=== PATIENT | female | born 1945 | race Caucasian/White ===

== ENCOUNTER 2020-09-20 16:22 | Inpatient (IN) | payer MEDICARE, SELFPAY ==
--- NOTE | ~2020-09-20 | XR_ITS ---
EXAMINATION: XR chest 1V portable 09/20/2020 19:50 INDICATION: Preop. Left hip fracture. PROCEDURE: AP portable chest COMPARISON: No prior studies for comparison. FINDINGS: The lungs are clear. There are calcified granulomas of the lungs. The cardiomediastinal osman houette is within normal limits. There are no pleural effusions. There is no pneumothorax suspected . IMPRESSION: 1: NO ACUTE CARDIOPULMONARY DISEASE. Reviewed, dictated and finalized at location A. ARCHITECT
--- NOTE | ~2020-09-20 | XR_ITS ---
XR surgery orthopedic 09/21/2020 18:39 Indication: Left hip pinning for femoral neck fracture Procedure: 2 fluoroscopic images left hip. 183 seconds of fluoroscopy. Comparison: 09/20/2020 Findings: There is anatomic alignment of the left femoral neck status post internal fixation with 3 l ag screws. Surrounding osseous structures and soft tissues are unremarkable. Impression: 1: Anatomic alignment of the left femoral neck fracture status post reduction with 3 lag screws. Reviewed, dictated and finalized at location A. MAT CAR ATTENDANT Impression: 1: Anatomic alignment of the left femoral neck fracture status post reduction w ith 3 lag screws.
--- NOTE | ~2020-09-20 | XR_ITS ---
XR hip LT 2V w AP pelvis 09/20/2020 18:52 Indication: Left hip pain after fall Procedure: 3 views left hip including AP pelvis Comparison: No prior studies for comparison. Findings: There is a nondisplaced impaction fracture of the left femoral neck. No significant angulat ion. Pelvic rings are intact. No other fracture. Impression: 1: Nondisplaced impaction fracture left femoral neck. Reviewed, dictated and finalized at location A. DUE ACCOUNTS CLERK Impression: 1: Nondisplaced impaction fracture left femoral neck.
[2020-09-20 16:53] VITALS: BP 102/81; PULSE 94; RESP 18; TEMP 37.2; O2SAT 100
--- NOTE | 2020-09-20 19:32 | ED.LOWEXIN ---
HPI - Extremity Injury (Lower) General Chief Complaint: Extremity Injury, Lower Stated Complaint: Fall-left leg/hip pain Time Seen by Provider: 09/20/20 18:58 Source: patient Mode of arrival: ambulatory Limitations: no limitations History of Present Illness HPI Narrative: Patient is a 75-year-old female who reports slip and fall on concrete yesterday complaining of left hip pain. Patient reports pain increases with ambulation and range of movement. Patient denies taking mpqi-emg-dlwdest pain medications. Patient denies significant medical history. Related Data Allergies Allergy/AdvReac Type Severity Reaction Status Date / Time No Known Allergies Allergy Verified 09/20/20 20:12 Review of Systems Review of Systems: Narrative: CONSTITUTIONAL: Denies fever, chills, or sweats. EYES: Denies visual changes, redness, or discharge. ENT: Denies rhinorrhea, congestion, sore throat, or otalgia. CARDIOVASCULAR: Denies chest pain, palpitations, or edema. RESPIRATORY: Denies cough or dyspnea. GASTROINTESTINAL: Denies abdominal pain, nausea, vomiting, or diarrhea. GENITOURINARY: Denies dysuria or hematuria. SKIN: Denies rash or itching. MUSCULOSKELETAL: Reports left hip and leg pain NEUROLOGIC: Denies headache, numbness, dizziness, or weakness. PSYCHIATRIC: Denies anxiety or depression. [facility] Past Medical History Medical History Migraines Surgical History Surgical History No significant past surgical history Family History Family History Mother Family history of malignant neoplasm of cervix, Onset Age: 43 Father Family history of malignant neoplasm of brain, Onset Age: 50 Patient's father is , Onset Age: 50 Social History Social History (Updated 09/20/20 @ 19:42 by KEVIN Matamoros) Smoking status: Never smoker Alcohol intake: never Substance use: never Living arrangements: with family Comments At the time of signature, I have reviewed and agree with nursing past medical, surgical, social, and family history unless otherwise noted. Please see nursing chart for further information. There is no relevant family history pertinent to the presenting complaint. Exam Narrative: Exam Narrative: GENERAL: Well-appearing, well-nourished, and in no acute distress. HEAD: Normocephalic, atraumatic. EYES: No redness or drainage. ENT: Mucous membranes pink and moist. CHEST: No respiratory distress. Clear to auscultation. HEART: Regular rate and rhythm. No murmur appreciated. Normal peripheral pulses. GI: Soft, nontender without rebound, or guarding. No distention. MUSCULOSKELETAL: No bony tenderness. EXTREMITIES: Tenderness with palpation of the left hip, no shortening or rotation noted. No edema. SKIN: Warm, dry, no rash. NEURO: No focal deficits. Alert and oriented x3. Gait steady. PSYCH: Normal affect. No signs of depression or anxiety. Course Vital Signs Vital signs: Vital Signs Temperature 37.2 C 09/20/20 16:53 Pulse Rate 94 09/20/20 16:53 Respiratory Rate 18 09/20/20 16:53 Blood Pressure 102/81 09/20/20 16:53 Pulse Oximetry 100 09/20/20 16:53 Temperature 37.2 C 09/20/20 16:53 Pulse Rate 94 09/20/20 16:53 Respiratory Rate 18 09/20/20 16:53 Blood Pressure 102/81 09/20/20 16:53 Pulse Oximetry 100 09/20/20 16:53 Reviewed MDM - Extremity Injury (Lower) MDM Narrative Medical decision making narrative: Patient has Nondisplaced impaction fracture left femoral neck. Spoke with Dr. Willis who will consult patient tomorrow. Dr. Booker will admit patient to medical floor. Patient agrees with plan of care. Differential Diagnosis Differential diagnosis: Likely fracture of hip Lab Data Attestation: I reviewed the patient's lab results. Imaging Data Radiologist's impression: ITS Impr
--- NOTE | 2020-09-20 19:38 | ECG_ITS ---
Measurements Intervals [place] Rate: 91 P: 57 IL: 146 QRS: 54 QRSD: 93 T: 42 QT: 360 QTc: 443 Interpretive Statements SINUS RHYTHM VENTRICULAR PREMATURE COMPLEX BORDERLINE ECG Electronically Signed On 09-21-2020 7:06:44 CENTER MACHINE SET UP OPERATOR by Christian Zuniga D.O.
[2020-09-20 20:02] LABS: Basophils Percent Auto 0.2 % (0.2-1.2); Eosinophils Absolute Auto 0.1 K/mm3 (0-0.3); Eosinophils Percent Auto 1.2 % (0-4.4); Hematocrit 37.8 % (37.0-47.0); Hemoglobin 12.7 g/dL (12.0-15.0); Immature Granulocyte Absolute 0.03 K/mm3 (0.00-0.031); Immature Granulocyte Percent A 0.3 % (0-0.5); Lymphocytes Absolute Auto 1.81 K/mm3 (0.9-3.2); Mean Corpuscular HGB Conc 33.6 g/dl (32-36); Mean Corpuscular Hemoglobin 31.7 pg (26-34); Mean Corpuscular Volume 94.3 fl (80-100); Mean Platelet Volume 10.8 fl (7.4-10.4); Monocytes Absolute Auto 0.6 K/mm3 (0.1-0.6); Monocytes Percent Auto 6.2 % (2.6-8.5); Neutrophils Absolute Auto 6.5 K/mm3 (1.3-6.7); Neutrophils Percent Auto 72.1 % (45.5-73.1); Platelet Count Result 235 k/mm3 (150-375); Red Blood Count 4.01 M/mm3 (4.2-5.4); Red Cell Distribution Width 13.2 % (11.5-14.5); White Blood Count 9.1 K/mm3 (4.5-10.0)
[2020-09-20 20:15] LABS: Alanine Aminotransferase 27 U/L (4-35); Albumin Level 4.4 g/dL (3.5-5.1); Alkaline Phosphatase 80 U/L (38-126); Anion Gap 8 mmol/L (8-16); Aspartate Amino Transferase 31 U/L (14-36); Bilirubin,Total 0.7 mg/dL (0.2-1.3); Blood Urea Nitrogen 16 mg/dL (7-17); Calcium 9.2 mg/dL (8.4-10.2); Carbon Dioxide 26 mmol/L (22-30); Chloride 104 mmol/L (98-107); Estimated CRCL calculation 43 ml/min; Estimated Glomerular Filt Rate > 60; Glucose 102 mg/dL (65-105); Potassium 3.9 mmol/L (3.4-5.0); Sodium 138 mmol/L (137-145)
[2020-09-20 20:52] LABS: Partial Thromboplastin Time 26.6 SECONDS (22.3-36.8)
[2020-09-20 21:22] VITALS: BMI 21.5
--- NOTE | 2020-09-20 21:22 | ADMGEN ---
This patient, Linda Romero, was admitted to 2 Medical Room 242-. Patient/family oriented to hospital policies and general routines including ID bracelet, bed and alarms, visiting hours, pain management, procedures, bathroom and other care routines, personal items, smoking policy, room service/diet, and visiting hours. Information on how to activate the Rapid Response Team has been discussed. Patient/Family are encouraged to report perceived risks to care and to ask questions if they do not understand what they are told or what they should do.
[2020-09-20 21:51] VITALS: BP 129/59; PULSE 83; RESP 16; TEMP 36.7; O2SAT 98
[2020-09-20] MEDS: SODIUM CHLORIDE 0.9% IV 1,000 ML 125 ML IV CONT (22:11)
[2020-09-20] MEDS: MORPHINE SULFATE (*CRX) 4 MG/ML INJ IV PUSH (22:14)
--- NOTE | 2020-09-20 23:10 | PM.IMHP ---
H&P: HPI History of Present Illness Date/Time: 09/20/20 23:10 Chief Complaint: Left leg pain after fall yesterday. Narrative: This is a very pleasant 75-year-old female with no significant medical history presented to the emergency department earlier today from home for evaluation of left leg pain after a fall. Yesterday afternoon she was walking in the yard and tripped over a downspout drain, landing on her left side. She was not able to get herself up but with her 's help she was able to stand and walk gingerly into the home. She thought that she bruised or strained a muscle in her leg and thought she was feeling better this morning after rest however as the day progressed she began having ?excruciating? aching pain in the left hip and thus she came in for evaluation. She was found to have a left hip fracture and is being admitted in this setting. She sustained no other significant injuries in the fall but does have some soreness about her left ribcage. Review of Systems Review of Systems: Narrative: A complete review of systems was conducted. She denies fever, chills, sweats. No recent cold or flu symptoms. No history of cardiac or pulmonary disease. No syncope or near syncope. No exertional chest pain or shortness of breath. In fact she is quite active and takes care of her grandson an elderly sister. No history of venous thromboembolism. She denies nausea, vomiting, and diarrhea, and dysuria. Except as documented, all other systems were reviewed and are negative. [facility] Past Medical History Medical History (Updated 09/20/20 @ 23:42 by Saba Zacarias PA-C) Migraines Surgical History Surgical History (Updated 09/20/20 @ 23:42 by Saba Zacarias PA-C) No history of previous surgery Family History Family History (Updated 09/20/20 @ 23:42 by Saba Zacarias PA-C) Mother Family history of malignant neoplasm of cervix, Onset Age: 43 Father Family history of malignant neoplasm of brain, Onset Age: 50 Patient's father is , Onset Age: 50 Son Myotonic dystrophy Diabetes mellitus Social History Social History (Updated 09/20/20 @ 23:43 by Saba Zacarias PA-C) Social History: The patient lives with her in [place]. They had 3 children, 2 daughters and a son. Their son not long ago from myotonic dystrophy. She helps care for her 26-year-old grandson in her 91-year-old sister who live nearby. 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 Lifelong nonsmoker. No alcohol or illicit substance use. She designates her , Joce, as her surrogate decision maker and she wishes to be a full code. Spiritual care concerns: Yes (Shinto) Meds Home Medications and Allergies Home Medications Medication Instructions Recorded Confirmed Type B-Complex W/Vitamin B-12 1 tablet BYMOUTH DAILY 09/20/20 09/20/20 History biotin 1 cap BYMOUTH DAILY 09/20/20 09/20/20 History qbemoqt-mcprhmcux-fyjz 1 tablet PO DAILY 09/20/20 09/20/20 History Allergies Allergy/AdvReac Type Severity Reaction Status Date / Time No Known Allergies Allergy Verified 09/20/20 20:12 Vital Signs Vital Signs - 24 hr 09/20/20 16:53 09/20/20 21:51 Temperature 99.0 F 98.0 F Pulse Rate 94 83 Respiratory Rate 18 16 Blood Pressure 102/81 129/59 L Pulse Oximetry 100 98 Exam Narrative: Exam Narrative: General: Well-developed elderly female appearing a bit younger than her stated age the semi-Urrutia position in bed in no acute distress. Weight: 50 kilograms. BMI: 21.5. HEENT: Normocephalic, atraumatic. PERRL, EOMI. Sclerae anicteric. Oral mucosa moist. Oropharynx clear. Neck: Supple. Respiratory: Lungs are clear to auscultation bilaterally. Cardiovascular: Regular rate and rhythm with S1-S2. Gastrointestinal: Abdomen is soft, nontender, and nondistended with positive bowel sounds. Skin: War
[2020-09-21] VITALS (13 sets, daily range): BP systolic 77–111; BP diastolic 42–59; PULSE 64–86; RESP 7–20; TEMP 36.3–37.1; O2SAT 91–100
[2020-09-21] MEDS: MORPHINE SULFATE (*CRX) 4 MG/ML INJ IV PUSH ×2 (01:11→07:05)
[2020-09-21] MEDS: HYDROcodone/acetaminophen (*CRX) 5-325 MG TABLET 1 TAB PO (02:32)
--- NOTE | 2020-09-21 10:19 | PM.CNOR ---
Assessment and Plan Assessment and plan (1) Closed displaced fracture of left femoral neck: Code(s): S72.002A - Fracture of unspecified part of neck of left femur, initial encounter for closed fracture Status: Acute Assessment and Plan: History, exam and radiographs reviewed with the patient and her at the bedside. Radiographs the left hip reveal a nondisplaced impaction fracture left femoral neck. Fracture type, condition, nature, etiology course of natural history reviewed with the patient. Conservative and operative treatment options reviewed as well as the risks and benefits of each. The patient desires surgical intervention at this time. Discussed Left Hip Pinning Risks of surgery including but not limited to neurovascular damage, wound complications, blood clot, pulmonary embolus, stroke, myocardial infarction, anesthetic risks up to and including were reviewed. Continued pain and possible dysfunction were explained. No guarantees were offered. The patient understands and wishes to proceed. Plan: LEFT Hip Pinning by Dr. Mike HUFFMAN in the interim Bedrest Pain Control Ice Hip Incentive spirometry use. Plan for PT/OT post op. HIGH FALL RISK. Dispo: Patient currently requesting to be discharged home with home health pending successful operative treatment, progression with physical and occupational therapy and medical stability. is also agreeable to home with home health. History of Present Illness HPI Consult date: 09/21/20 Requesting physician: Shanda Quick FNP Consult reason: fracture (Left Hip Fracture ) Chief complaint: Left hip fracture Narrative: 75-year-old female admitted to [facility] status post fall while at home on Sunday evening. She reports having fallen after slipping on a down spot in her yard and falling onto the concrete onto the left side. She was unable to stand independently after her fall and had to use her to get up. She did not report to the emergency room and immediately as she had less than the pain throughout the night however the following morning her pain continued and she decided to seek treatment. Radiographs obtained in the emergency room of the left hip reveal a nondisplaced impaction fracture left femoral neck. Patient also complained of left rib soreness and a chest x-ray was obtained which revealed no evidence of fracture. Orthopedic consult requested and patient admitted for further treatment. Review of Systems Constitutional: Constitutional: Reports no additional constitutional complaints, Denies chills, Denies fatigue, Denies fever(s), Denies headache(s) and Denies weakness Eyes: Eyes: Denies change in vision ENT: Reports Normal hearing present and Denies headache(s) Cardiovascular: Cardiovascular: Denies chest pain and Denies dyspnea Respiratory: Respiratory: Denies cough, Denies dyspnea and Denies wheezing Gastrointestinal: Gastrointestinal: Denies constipation, Denies diarrhea, Denies nausea and Denies vomiting Genitourinary: Genitourinary: Denies hematuria and Denies dysuria Musculoskeletal: Musculoskeletal: Reports as per HPI, Denies numbness and Denies tingling Integumentary/Breasts: Skin/Breast: Reports system reviewed and no additional complaints, except as docu Neurologic: Reports as per HPI, Reports Normal hearing present, Denies headache(s), Denies numbness, Denies tingling and Denies weakness Psychiatric: Psychiatric: Reports no additional psychiatric complaints Endocrine: Endocrine: Reports no additional endocrine complaints and Denies fatigue Hematologic/Lymphatic: Hematologic/Lymphatic: Reports no additional hematologic/lymphatic complaints Allergic/Immunologic: Allergic/Immunologic: Reports no additional allergic/immunologic complaints and Denies wheezing PMFSH Past Medical History Medical History Migraines Surgical History Surgical Hist
--- NOTE | 2020-09-21 13:19 | PM.IMPN ---
Progress Note: A&P Assessment and Plan (1) Closed displaced fracture of left femoral neck: Code(s): S72.002A - Fracture of unspecified part of neck of left femur, initial encounter for closed fracture Status: Acute Assessment and Plan: Secondary to mechanical fall on 09/19. Orthopedic Surgery consulted and appreciate recommendations. Plans for hip repair today. Pain is reasonably controlled for now NPO for surgery in a.m. Analgesics available as needed. Post op care, pain management, PT/OT, DVT ppx per Orthopedic Surgery Subjective Date/time seen: 09/21/20 13:19 Interval history: Patient is a 75 yo F with with no significant medical history who is seen in follow up for left hip fracture s/p ground level fall on 09/19. Patient states her left hip pain is reasonable today. She has a mild headache but occurs often at home. She is anticipating surgery this afternoon/evening. She again states she tripped over a downspout drain; no other associated symptoms surrounding fall. Denies f/c/s,headaches, dizziness, lightheadedness, cp/palpitations, sob/cough, n/v/d/c, abd pain, changes in BMs, issues with Guerin, calf pain/swelling. Review of Systems Review of Systems: All systems reviewed & are unremarkable except as noted in HPI and below Exam Narrative: Exam Narrative: General: Patient resting supine in bed in no acute distress. HEENT: Normocephalic, EOMI, oral mucosa moist. Cardiovascular: Rate and rhythm are regular. No notable murmur, rub, or gallop. Respiratory: Lungs clear to auscultation anterolateral lung finch. Non-labored breathing. Abdomen: Soft, non-tender, non-distended, bowel sounds present. Extremities: Peripheral pulses intact. No edema. NTTP b/l calves. Left hip has mild ecchymosis. pain with slight movement of left hip. nvi b/l LE Neuro: No focal neurological deficits. Speech is clear. Objective Data Vital Signs Vital Signs: Last Vital Signs Temp 97.8 F 09/21/20 06:00 Pulse 78 09/21/20 06:00 Resp 20 09/21/20 06:00 BP 103/51 L 09/21/20 06:00 Pulse Ox 91 09/21/20 09:52 Intake/Output Intake/Output: Intake & Output 09/18/20 09/19/20 09/20/20 09/21/20 23:59 23:59 23:59 23:59 Intake Total 0 Output Total 450 Balance -450 Meds/Results Medications: Active Medications Generic Name Dose Route Start Last Admin Trade Name Freq PRN Reason Stop Dose Admin Acetaminophen 650 mg 09/20/20 23:46 Acetaminophen 325 Mg Tablet PO Q6H PRN Mild Pain (1-3) or Fever Hydrocodone Bitart/Acetaminophen 1 tab 09/20/20 20:07 09/21/20 02:32 Hydrocodone/Acetaminophen (*Crx) 5-325 Mg Tablet PO 1 tab Q4H PRN Administration Pain Rated 4-6 Morphine Sulfate 4 mg 09/20/20 20:07 09/21/20 07:05 Morphine Sulfate (*Crx) 4 Mg/Ml Inj IV PUSH 4 mg Q2H PRN Administration Pain Rated 7-10 Ondansetron HCl 4 mg 09/20/20 20:07 Ondansetron Inj 4 Mg/2 Ml Vial IV PUSH Q4H PRN Nausea Radiology Results: ITS Impressions Hip/Pelvis X-Ray 09/20/20 18:57 Impression: 1: Nondisplaced impaction fracture left femoral neck. Chest X-Ray 09/20/20 19:58 IMPRESSION: 1: NO ACUTE CARDIOPULMONARY DISEASE. Labs Labs: Laboratory Tests 09/20/20 19:56 09/20/20 19:56 Quality VTE Prophylaxis VTE prophylaxis: mechanical ordered (Apply to unaffected limb only.)
--- NOTE | 2020-09-21 15:12 | WPDHPUPDATE1 ---
History and Physical Update Update Date/Time: 09/21/20 15:12 History and Physical has been reviewed, including an updated exam of the patient. There are NO changes in the patient's condition. Risks, benefits, and alternatives have been discussed and questions answered. Patient agrees to proceed with procedure.
[2020-09-21] MEDS: LACTATED RINGERS 1,000 ML 30 ML IV CONT (16:00)
[2020-09-21] MEDS: TRANEXAMIC ACID 1,000MG/ISO100 1,000 MG/100 ML BAG 200 MG IVPB (16:09)
--- NOTE | 2020-09-21 16:11 | WPDANESEPPF ---
Anes - Initial Pre Proc Eval Procedure: Operation Date: 09/21/20 17:00 Proposed Procedures p Left Hip Pinning - Abdoul Mckeon MD Date/Time: 09/21/20 16:11 Surgeon: Houston Pérez PA-C Pre Op Diagnosis: Left hip fracture Patient Data Age: 75 Gender: F Height: 5 ft Weight: 50 kg Last Vital Signs Temp 36.6 C 09/21/20 15:56 Pulse 86 09/21/20 15:56 Resp 20 09/21/20 15:56 BP 98/59 L 09/21/20 15:56 Pulse Ox 96 09/21/20 15:56 Allergies Allergy/AdvReac Type Severity Reaction Status Date / Time No Known Allergies Allergy Verified 09/20/20 20:12 Home Medications Medication Instructions Recorded Confirmed Type B-Complex W/Vitamin B-12 1 tablet BYMOUTH DAILY 09/20/20 09/20/20 History biotin 1 cap BYMOUTH DAILY 09/20/20 09/20/20 History oxwkooj-smxxpggve-ycqj 1 tablet PO DAILY 09/20/20 09/20/20 History Laboratory Tests 09/20/20 09/20/20 09/20/20 19:56 19:56 19:56 WBC 9.1 K/mm3 K/mm3 (4.5-10.0) RBC 4.01 M/mm3 L M/mm3 (4.2-5.4) Hgb 12.7 g/dL g/dL (12.0-15.0) Hct 37.8 % % (37.0-47.0) MCV 94.3 fl fl (80-100) MCH 31.7 pg pg (26-34) MCHC 33.6 g/dl g/dl (32-36) RDW 13.2 % % (11.5-14.5) Plt Count 235 k/mm3 k/mm3 (150-375) MPV 10.8 fl H fl (7.4-10.4) Immature Gran % (Auto) 0.3 % % (0-0.5) Neut % (Auto) 72.1 % % (45.5-73.1) Lymph % (Auto) 20.0 % % (18.3-44.2) [place] % (Auto) 6.2 % % (2.6-8.5) Eos % (Auto) 1.2 % % (0-4.4) Baso % (Auto) 0.2 % % (0.2-1.2) Lymph # (Auto) 1.81 K/mm3 K/mm3 (0.9-3.2) [place] # (Auto) 0.6 K/mm3 K/mm3 (0.1-0.6) Eos # (Auto) 0.1 K/mm3 K/mm3 (0-0.3) Baso # (Auto) 0.0 K/mm3 K/mm3 (0.0-0.1) Abs Immat Gran (auto) 0.03 K/mm3 K/mm3 (0.00-0.031) Absolute Neuts (auto) 6.5 K/mm3 K/mm3 (1.3-6.7) Absolute Nucleated RBC 0.0 K/mm3 K/mm3 (0.0-0.012) Nucleated RBC % 0.0 % % (0.0-0.2) APTT 26.6 SECONDS SECONDS (22.3-36.8) Sodium 138 mmol/L mmol/L (137-145) Potassium 3.9 mmol/L mmol/L (3.4-5.0) Chloride 104 mmol/L mmol/L (98-107) Carbon Dioxide 26 mmol/L mmol/L (22-30) Anion Gap 8 mmol/L mmol/L (8-16) BUN 16 mg/dL mg/dL (7-17) Creatinine 0.70 mg/dL mg/dL (0.7-1.0) Estim Creat Clear Calc 43 ml/min ml/min Estimated GFR > 60 (59 - ) Glucose 102 mg/dL mg/dL (65-105) Calcium 9.2 mg/dL mg/dL (8.4-10.2) Total Bilirubin 0.7 mg/dL mg/dL (0.2-1.3) AST 31 U/L U/L (14-36) ALT 27 U/L U/L (4-35) Alkaline Phosphatase 80 U/L U/L (38-126) Total Protein 8.0 g/dL g/dL (6.3-8.2) Albumin 4.4 g/dL g/dL (3.5-5.1) Patient hx anesthesia problems: none Family hx anesthesia problems: none [facility] Past Medical History Medical History Migraines Surgical History Surgical History No history of previous surgery Family History Family History Mother Family history of malignant neoplasm of cervix, Onset Age: 43 Father Family history of malignant neoplasm of brain, Onset Age: 50 Patient's father is , Onset Age: 50 Son Myotonic dystrophy Diabetes mellitus Social History Social History Social History: The patient lives with her in [place]. They had 3 children, 2 daughters and a son. Their son not long ago from myotonic dystrophy. She helps care for her 26-year-old grandson and her 91-year-old sister who live nearby. 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
--- NOTE | 2020-09-21 16:26 | SUR.PREOP ---
PT UPDATED THAT SURGERY SHOULD BE IN ABOUT 30-45 MINUTES
--- NOTE | 2020-09-21 17:07 | P.PNAN_ITS ---
Anes - Eval Final PreProcedure Day of Procedure 09/21/20 17:07 Patient weight: normal Heart: regular rate and rhythm Lungs: clear to auscultation Airway: Mallampati scale class II Neurological: alert and oriented Last oral intake: >/= 8 hours ASA classification: II Emergent: yes Anesthetic plan: proceed Anesthesia type and monitoring: general LMA and standard monitoring Informed Consent: The patient's anesthetic plan and its attendant risks and b enefits were discussed with the patient/family/POA. Questions were solicited and answers provided to the satisfaction of the patient/family/POA.
[2020-09-21] MEDS: ONDANSETRON INJ 4 MG/2 ML VIAL IV PUSH (17:16)
[2020-09-21] MEDS: FAMOTIDINE 20 MG/2 ML VIAL IV PUSH (17:16)
[2020-09-21] MEDS: ceFAZolin 2 GM/D5W 50 ML 2 GM/50 ML BAG IVPB (17:37)
--- NOTE | 2020-09-21 18:45 | PM.PROC ---
Procedure Note - Detailed Date of procedure: 09/21/20 Pre-op diagnosis: Left hip fracture LEFT FEMORAL NECK FRACTURE Post-op diagnosis: same Procedure performed: CLOSED REDUCTION PERCUTANEOUS PINNING LEFT FEMORAL NECK Description of procedure: THE PATIENT WAS TAKEN TO THE OPERATING ROOM AND PLACED UNDER GENERAL ANESTHESIA. THE PATIENT WAS PLACED ON A FRACTURE TABLE. USING MILD TRACTION AND INTERNAL ROTATION THE LEFT FEMORAL NECK FRACTURE WAS REDUCED TO ANATOMICAL POSITION. NEXT THE LEFT LOWER EXTREMITY WAS PREPPED AND DRAPED IN THE STERIL FASHION FROM THE KNEE TO THE ILIAC CREST. THE INCISION WAS MADE ON THE LATERAL HIP JUST DISTAL TO THE GREATER TROCHANTER DOWN TO THE BONE. BLEEDERS WERE CAUTERIZED. 3 GUIDE PINS WERE PLACED THROUGH THE FEMORAL NECK AND PASSED THE FRACTURE SITE AND IN TO THE SUBCHONDRAL BONE OF THE FEMORAL HEAD. 3, 7.3 CANNULATED SCREWS WERE PLACED OVER THE GUIDE PINS AND THESE WERE SHOWN TO BE IN GOOD POSITION PER FLUOROSCOPY ON BOTH THE AP AND LATERAL VIEWS. THE ALL HAD EXCELLENT BITES. THE WOUND WAS WASHED WELL. THE DEEP FASCIAL LAYER WAS APPROXIMATED WITH 0 VYCRIL SUTURE, THE SUBCUTANEOUS LAYER WITH 2-0 VYCRIL AND THE SKIN WAS APPROXIMATED WITH AROLDO. A STERILE DRESSING WAS PLACED. THE PATIENT WAS TRANSFERRED TO A REGULAR BED AND WAS EXTUBATED AND SENT TO RECOVERY ROOM Anesthesia: ASAF Surgeon: Abdoul Mckeon MD Estimated blood loss (mL): 30 Complications: No immediate complications Condition: stable Disposition: PACU
[2020-09-21] MEDS: fentaNYL CITRATE INJ (*CRX) 100 MCG/2 ML VIAL 25 MCG IV PUSH ×5 (19:16→19:51)
--- NOTE | 2020-09-21 20:19 | PC.NURSE ---
This patient, Linda Romero, was received from [PACU] on 09/21/20 at 2015. Patient/family oriented to unit policies and routines
[2020-09-21] MEDS: FAMOTIDINE 20 MG TABLET PO (20:52)
[2020-09-21] MEDS: SODIUM CHLORIDE 0.9% IV 1,000 ML 125 ML IV CONT (20:52)
[2020-09-22] MEDS: ceFAZolin 2 GM/D5W 50 ML 2 GM/50 ML BAG IVPB ×3 (00:08→16:35)
[2020-09-22] MEDS: HYDROcodone/acetaminophen (*CRX) 7.5-325 MG TABLET 1 TAB PO ×3 (01:06→17:15)
[2020-09-22 01:42] VITALS: BP 100/49; PULSE 77; RESP 18; TEMP 36.6; O2SAT 97
[2020-09-22] MEDS: diazePAM (*CRX) 5 MG TABLET PO ×2 (03:28→11:15)
[2020-09-22 05:07] LABS: Hematocrit 31.3 % (37.0-47.0); Hemoglobin 10.3 g/dL (12.0-15.0); Mean Corpuscular HGB Conc 32.9 g/dl (32-36); Mean Corpuscular Hemoglobin 31.3 pg (26-34); Mean Corpuscular Volume 95.1 fl (80-100); Mean Platelet Volume 11.2 fl (7.4-10.4); Platelet Count Result 189 k/mm3 (150-375); Red Blood Count 3.29 M/mm3 (4.2-5.4); Red Cell Distribution Width 13.1 % (11.5-14.5); White Blood Count 8.8 K/mm3 (4.5-10.0)
[2020-09-22 05:08] VITALS: PULSE 71; RESP 18; TEMP 36.7; O2SAT 96
[2020-09-22 05:19] LABS: Anion Gap 7 mmol/L (8-16); Blood Urea Nitrogen 22 mg/dL (7-17); Calcium 7.8 mg/dL (8.4-10.2); Carbon Dioxide 24 mmol/L (22-30); Chloride 106 mmol/L (98-107); Estimated CRCL calculation 43 ml/min; Estimated Glomerular Filt Rate > 60; Glucose 118 mg/dL (65-105); Magnesium 1.7 mg/dL (1.6-2.3); Potassium 4.4 mmol/L (3.4-5.0); Sodium 137 mmol/L (137-145)
--- NOTE | 2020-09-22 07:59 | WPDANESPN ---
Anes - Prog Note Post-Op Date/Time: 09/22/20 07:59 Cardiovascular status: normal Respiratory status: normal Airway patency: baseline Mental status: baseline Post-Op hydration status: normal Vital Signs: Last Vital Signs Temp 36.7 C 09/22/20 05:08 Pulse 71 09/22/20 05:08 Resp 18 09/22/20 05:08 BP 100/49 L 09/22/20 01:42 Pulse Ox 96 09/22/20 05:08 Pain Score (VAS): 07/25 I/O: Intake & Output 09/21/20 09/21/20 09/22/20 15:59 23:59 07:59 Intake Total 250 1021 Output Total 365 400 Balance -115 621 Laboratory Tests 09/22/20 04:50 09/22/20 04:50 09/22/20 09/22/20 04:50 04:50 WBC 8.8 RBC 3.29 L Hgb 10.3 L Hct 31.3 L MCV 95.1 MCH 31.3 MCHC 32.9 RDW 13.1 Plt Count 189 MPV 11.2 H Sodium 137 Potassium 4.4 Chloride 106 Carbon Dioxide 24 Anion Gap 7 L BUN 22 H Creatinine 0.70 Estim Creat Clear Calc 43 Estimated GFR > 60 Glucose 118 H Calcium 7.8 L Magnesium 1.7 Post-procedural complaints: none Patient Feedback: Patient satisfied with anesthetic care.
[2020-09-22] MEDS: DOCUSATE SODIUM 100 MG CAPSULE PO ×2 (08:20→16:30)
[2020-09-22] MEDS: FONDAPARINUX SODIUM 2.5 MG/0.5 ML SYRINGE SUB-Q (08:20)
[2020-09-22] MEDS: FAMOTIDINE 20 MG TABLET PO ×2 (08:20→21:06)
[2020-09-22 10:14] VITALS: BP 112/59; PULSE 83; RESP 16; TEMP 36.8; O2SAT 100
[2020-09-22 14:14] VITALS: BP 102/58; PULSE 74; RESP 16; TEMP 36.6; O2SAT 97
--- NOTE | 2020-09-22 15:34 | PM.IMPN ---
Progress Note: A&P Assessment and Plan (1) Closed displaced fracture of left femoral neck: Code(s): S72.002A - Fracture of unspecified part of neck of left femur, initial encounter for closed fracture Status: Acute Assessment and Plan: Secondary to mechanical fall on 09/19. Orthopedic Surgery consulted and appreciate recommendations. Plans for hip repair today. Pain is reasonably controlled for now Post op care, pain management, PT/OT, DVT ppx per Orthopedic Surgery Monitor Patient plans to do home with HH at discharge Subjective Date/time seen: 09/22/20 15:34 Interval history: Patient is a 75 yo F with with no significant medical history who is seen in follow up for left hip fracture s/p ground level fall on 09/19; she is POD 1 left hip repair. Patient states her left hip pain is reasonable today; worse with movement, but reasonable. She thinks the surgery went well yesterday. She thinks therapy is going well. Denies f/c/s, cp/palpitations, sob/cough, n/v/d/c, abd pain, changes in BMs, dysuria, calf pain/swelling. Review of Systems Review of Systems: All systems reviewed & are unremarkable except as noted in HPI and below Exam Narrative: Exam Narrative: General: Patient resting in semi-swanson's in bed in no acute distress. HEENT: Normocephalic, EOMI, oral mucosa moist. Cardiovascular: Rate and rhythm are regular. No notable murmur, rub, or gallop. Respiratory: Lungs clear to auscultation anterolateral lung finch. Non-labored breathing. Abdomen: Soft, non-tender, non-distended, bowel sounds present. Extremities: Peripheral pulses intact. No edema. NTTP b/l calves. Left hip has dressing without signs of discharge/blood. nvi b/l LE Neuro: No focal neurological deficits. Speech is clear. Objective Data Vital Signs Vital Signs: Last Vital Signs Temp 97.8 F 09/22/20 14:14 Pulse 74 09/22/20 14:14 Resp 16 09/22/20 14:14 BP 102/58 L 09/22/20 14:14 Pulse Ox 97 09/22/20 14:14 Intake/Output Intake/Output: Intake & Output 09/19/20 09/20/20 09/21/20 09/22/20 23:59 23:59 23:59 23:59 Intake Total 250 1551 Output Total 815 400 Balance -565 1151 Meds/Results Medications: Active Medications Generic Name Dose Route Start Last Admin Trade Name Freq PRN Reason Stop Dose Admin Acetaminophen 650 mg 09/21/20 20:29 Acetaminophen 325 Mg Tablet PO Q6H PRN Pain Rated 1-3 Hydrocodone Bitart/Acetaminophen 1 tab 09/21/20 20:29 09/22/20 11:15 Hydrocodone/Acetaminophen (*Crx) 7.5-325 Mg Tablet PO 1 tab Q6H PRN Administration Pain Rated 4-6 Diazepam 5 mg 09/21/20 20:29 09/22/20 11:15 Diazepam (*Crx) 5 Mg Tablet PO 5 mg Q8H PRN Administration Muscle Spasm Docusate Sodium 100 mg 09/22/20 09:00 09/22/20 08:20 Docusate Sodium 100 Mg Capsule PO 100 mg BID KENJI Administration Famotidine 20 mg 09/21/20 21:00 09/22/20 08:20 Famotidine 20 Mg Tablet PO 20 mg Q12HR KENJI Administration Fondaparinux 2.5 mg 09/22/20 09:00 09/22/20 08:20 Fondaparinux Sodium 2.5 Mg/0.5 Ml Syringe SUB-Q 2.5 mg DAILY KENJI Administration Cefazolin Sodium 2 gm in 50 mls @ 100 mls/hr 09/22/20 01:00 09/22/20 09:28 Ancef 2 Gm/D5w 50 Ml IVPB 09/22/20 17:29 Infused Q8H KENJI Infusion Magnesium Hydroxide 30 ml 09/21/20 20:29 Magnesium Hydroxide Susp 30 Ml Udc PO BID PRN Constipation Morphine Sulfate 3 mg 09/21/20 20:29 Morphine Sulfate (*Crx) 4 Mg/Ml Inj IV PUSH Q3H PRN Pain Rated 7-10 Ondansetron HCl 4 mg 09/21/20 20:29 Ondansetron Inj 4 Mg/2 Ml Vial IV PUSH Q4H PRN Nausea And Vomiting Radiology Results: ITS Impressions Hip/Pelvis X-Ray 09/20/20 18:57 Impression: 1: Nondisplaced impaction fracture left femoral neck. Chest X-Ray 09/20/20 19:58 IMPRESSION: 1: NO ACUTE CARDIOPULMONARY DISEASE Intraoperative X-Ray 09/21/20 18:50
[2020-09-22] MEDS: MAGNESIUM HYDROXIDE SUSP 30 ML UDC PO (16:34)
--- NOTE | 2020-09-22 17:12 | PM.PNORT ---
Progress Note: A&P Additional Plan POD 1 DOING WELL. MAY BE READY FOR DC TOMORROW DEPENDING ON PT. SHE WILL F/U IN 6 WEEKS. SHE WILL CONTINUE STRICT NON WEIGHT BEARING Subjective Subjective Date/Time Seen: 09/22/20 17:12 POD 1 DOING WELL. HER PAIN IS IMPROVED. SHE HAS NO CALF PAIN. Review of Systems Review of Systems: All systems reviewed & are unremarkable except as noted in HPI and below Exam Extrem: Other: VSS AFEBRILE DRESSING DRY NV INTACT NEG HOMANS SIGN, CALF SOFT Objective Data Vital Signs Vital Signs: Vital Signs - 24 hr 09/21/20 18:55 09/21/20 19:12 09/21/20 19:29 Temperature 36.3 C L Pulse Rate 72 68 64 Respiratory Rate 7 L 12 12 Blood Pressure 77/42 L 88/48 L 111/52 L Pulse Oximetry 100 100 100 09/21/20 19:45 09/21/20 20:00 09/21/20 20:15 Temperature 36.5 C Pulse Rate 74 72 66 Respiratory Rate 18 7 L 16 Blood Pressure 102/56 L 102/46 L 103/43 L Pulse Oximetry 98 100 96 09/21/20 20:30 09/21/20 21:00 09/21/20 22:00 Temperature 36.5 C 37.1 C 36.4 C Pulse Rate 71 77 86 Respiratory Rate 16 18 16 Blood Pressure 105/44 L 107/48 L 92/53 L Pulse Oximetry 95 97 99 09/22/20 01:42 09/22/20 05:08 09/22/20 10:14 Temperature 36.6 C 36.7 C 36.8 C Pulse Rate 77 71 83 Respiratory Rate 18 18 16 Blood Pressure 100/49 L 112/59 L Pulse Oximetry 97 96 100 09/22/20 14:14 Temperature 36.6 C Pulse Rate 74 Respiratory Rate 16 Blood Pressure 102/58 L Pulse Oximetry 97 Intake/Output Intake/Output: Intake & Output 09/19/20 09/20/20 09/21/20 09/22/20 23:59 23:59 23:59 23:59 Intake Total 250 1551 Output Total 815 400 Balance -565 1151 Meds/Results Medications: Active Medications Generic Name Dose Route Start Last Admin Trade Name Freq PRN Reason Stop Dose Admin Acetaminophen 650 mg 09/21/20 20:29 Acetaminophen 325 Mg Tablet PO Q6H PRN Pain Rated 1-3 Hydrocodone Bitart/Acetaminophen 1 tab 09/21/20 20:29 09/22/20 11:15 Hydrocodone/Acetaminophen (*Crx) 7.5-325 Mg Tablet PO 1 tab Q6H PRN Administration Pain Rated 4-6 Diazepam 5 mg 09/21/20 20:29 09/22/20 11:15 Diazepam (*Crx) 5 Mg Tablet PO 5 mg Q8H PRN Administration Muscle Spasm Docusate Sodium 100 mg 09/22/20 09:00 09/22/20 16:30 Docusate Sodium 100 Mg Capsule PO 100 mg BID KENJI Administration Famotidine 20 mg 09/21/20 21:00 09/22/20 08:20 Famotidine 20 Mg Tablet PO 20 mg Q12HR KENJI Administration Fondaparinux 2.5 mg 09/22/20 09:00 09/22/20 08:20 Fondaparinux Sodium 2.5 Mg/0.5 Ml Syringe SUB-Q 2.5 mg DAILY KENJI Administration Cefazolin Sodium 2 gm in 50 mls @ 100 mls/hr 09/22/20 01:00 09/22/20 16:35 Ancef 2 Gm/D5w 50 Ml IVPB 09/22/20 17:29 100 mls/hr Q8H KENJI Administration Magnesium Hydroxide 30 ml 09/21/20 20:29 09/22/20 16:34 Magnesium Hydroxide Susp 30 Ml Udc PO 30 ml BID PRN Administration Constipation Morphine Sulfate 3 mg 09/21/20 20:29 Morphine Sulfate (*Crx) 4 Mg/Ml Inj IV PUSH Q3H PRN Pain Rated 7-10 Ondansetron HCl 4 mg 09/21/20 20:29 Ondansetron Inj 4 Mg/2 Ml Vial IV PUSH Q4H PRN Nausea And Vomiting Radiology Results: ITS Impressions Hip/Pelvis X-Ray 09/20/20 18:57 Impression: 1: Nondisplaced impaction fracture left femoral neck. Chest X-Ray 09/20/20 19:58 IMPRESSION: 1: NO ACUTE CARDIOPULMONARY DISEASE. Intraoperative X-Ray 09/21/20 18:50 Impression: 1: Anatomic alignment of the left femoral neck fracture status post reduction with 3 lag screws. Labs Labs: Laboratory Results - last 24 hr 03/10/21 03/10/21 04:50 04:50 WBC 8.8 RBC 3.29 L Hgb 10.3 L Hct 31.3 L MCV 95.1 MCH 31.3 MCHC 32.9 RDW 13.1 Plt Count 189 MPV 11.2 H Sodium 137 Potassium 4.4 Chloride 106 Carbon Dioxide 24 Anion Gap 7 L BUN 22 H Creatinine 0.70 Estim Creat Clear Calc 43 Estimated GFR > 60 Glucose
[2020-09-22 18:14] VITALS: BP 101/54; PULSE 81; RESP 18; TEMP 36.4; O2SAT 97
[2020-09-22 21:10] VITALS: BP 105/49; PULSE 72; RESP 18; TEMP 36.8; O2SAT 99
[2020-09-23 00:04] VITALS: BP 93/46; PULSE 86; RESP 18; TEMP 36.4; O2SAT 96
[2020-09-23] MEDS: HYDROcodone/acetaminophen (*CRX) 7.5-325 MG TABLET 1 TAB PO ×2 (04:14→13:06)
[2020-09-23 05:20] VITALS: BP 90/41; PULSE 73; RESP 14; TEMP 36.6; O2SAT 94
[2020-09-23 08:00] VITALS: BP 116/60; PULSE 81; RESP 14; TEMP 36.4; O2SAT 97
[2020-09-23] MEDS: FONDAPARINUX SODIUM 2.5 MG/0.5 ML SYRINGE SUB-Q (08:19)
[2020-09-23] MEDS: FAMOTIDINE 20 MG TABLET PO (08:19)
[2020-09-23] MEDS: diazePAM (*CRX) 5 MG TABLET PO (08:20)
[2020-09-23] MEDS: DOCUSATE SODIUM 100 MG CAPSULE PO (08:20)
--- NOTE | 2020-09-23 09:03 | PM.PNORT ---
Progress Note: A&P Assessment and Plan (1) Closed displaced fracture of left femoral neck: Code(s): S72.002A - Fracture of unspecified part of neck of left femur, initial encounter for closed fracture Status: Acute Assessment and Plan: POD #3: CLOSED REDUCTION PERCUTANEOUS PINNING LEFT FEMORAL NECK Continue PT/OT. TTWB LLE. Walker. HIGH FALL RISK. Continue pain control. Ice lateral hip. Incentive spirometry use reviewed. SCDs. DVT prophylaxis with Arixtra. Change dressing daily. Dispo: Home with Home Health pending progress with PT/OT. Subjective Subjective Date/Time Seen: 09/23/20 09:03 POD #3: CLOSED REDUCTION PERCUTANEOUS PINNING LEFT FEMORAL NECK No new complaints. Pain well controlled. Working well with PT/OT. Would like to go home today. Review of Systems Constitutional: Constitutional: Denies chills, Denies fatigue, Denies fever(s), Denies night sweats and Denies weakness Cardiovascular: Cardiovascular: Denies chest pain, Denies lightheadedness, Denies palpitations and Denies dyspnea Respiratory: Respiratory: Denies cough, Denies dyspnea and Denies wheezing Gastrointestinal: Gastrointestinal: Denies abdominal pain, Denies diarrhea, Denies nausea and Denies vomiting Musculoskeletal: Musculoskeletal: Reports arthralgias (left hip ), Reports joint swelling (left hip ) and Denies numbness Neurologic: Denies numbness and Denies weakness Endocrine: Endocrine: Denies fatigue and Denies palpitations Allergic/Immunologic: Allergic/Immunologic: Denies wheezing Exam Const: General: comfortable and no acute distress Resp: Effort & Inspection: normal respiratory effort Cardio: Rate: regular rate Rhythm: regular rhythm GI: Inspection: non-distended Skin: General skin exam: normal color Wounds: wounds noted (incision left hip C/D/I ) Extrem: Right lower extremity: normal to inspection, full ROM and normal capillary refill Left lower extremity: hip/thigh Details: tenderness Location: of the hip Location: laterally and anteriorly, swelling (thigh soft ) Location: of the hip (lateral. ), abnormal ROM (limitations with internal/external rotation and flexion/extension due to recent surgical intervention ) and other (incision lateral hip c/d/i. ), knee Details: normal to inspection and normal ROM; no tenderness and no swelling, lower leg (Negative Narinder's Sign ) Details: no edema, ankle (+ankle dorsiflexion/plantarflexion ) Details: normal to inspection, no edema and normal ROM; no tenderness, no swelling and no warmth and foot Details: normal capillary refill, toes with normal ROM, vascular exam Details: dorsalis pedis pulse present and motor-sensory exam light-touch normal in all toes; no tenderness, no ecchymosis and no crepitus Psych: Mental Status: mental status grossly normal Affect: normal affect Objective Data Vital Signs Vital Signs: Vital Signs - 24 hr 09/22/20 10:14 09/22/20 14:14 09/22/20 18:14 Temperature 36.8 C 36.6 C 36.4 C L Pulse Rate 83 74 81 Respiratory Rate 16 16 18 Blood Pressure 112/59 L 102/58 L 101/54 L Pulse Oximetry 100 97 97 09/22/20 21:10 09/23/20 00:04 09/23/20 05:20 Temperature 36.8 C 36.4 C 36.6 C Pulse Rate 72 86 73 Respiratory Rate 18 18 14 Blood Pressure 105/49 L 93/46 L 90/41 L Pulse Oximetry 99 96 94 Intake/Output Intake/Output: Intake & Output 09/20/20 09/21/20 09/22/20 09/23/20 23:59 23:59 23:59 23:59 Intake Total 250 2441 250 Output Total 815 1150 900 Balance -565 1291 -650 Meds/Results Medications: Active Medications Generic Name Dose Route Start Last Admin Trade Name Freq PRN Reason Stop Dose Admin Acetaminophen 650 mg 09/21/20 20:29 Acetaminophen 325 Mg Tablet PO Q6H PRN Pain Rated 1-3 Hydrocodone Bitart/Acetaminophen 1 tab 09/21/20 20:29 09/23/20 04:14 Hydrocodone/Acetaminophen (*Crx) 7.5-325 Mg Tablet PO 1 tab Q6H PRN Administration Pain Rated 4-6 Diazepam 5 mg 09/21/20 20:29
--- NOTE | 2020-09-23 11:08 | PM.DS ---
DS: Admitting Diagnosis Admitting Diagnosis Admitting Diagnosis: Left hip fracture DS: Discharge Diagnosis Discharge Diagnosis (1) Closed displaced fracture of left femoral neck: Code(s): S72.002A - Fracture of unspecified part of neck of left femur, initial encounter for closed fracture Status: Acute Assessment and Plan: Secondary to mechanical fall on 09/19. Orthopedic Surgery consulted and appreciate recommendations. POD [address] repair per Dr[address] Mckeon. Pain is reasonably controlled. Doing well with therapy. Plans for discharge today with f/u with Orthopedic Surgery as outpatient Post op care, pain management, PT/OT, DVT ppx per Orthopedic Surgery F/u with Ortho in 6 weeks as outpatient Patient plans to do home with HH at discharge DS: Summary Hospital Course Reason for hospitalization: Left hip fracture Hospital Course: Date of arrival: 09/20/20 Date of discharge: 09/23/20 Patient is a pleasant 75-year-old female with no significant medical history presented to the emergency department on 09/20 from home for evaluation of left leg pain after a mechanical fall on the day prior. While in ED, she was found to have a nondisplaced impaction fracture left femoral neck on left hip/pelvis xray. Dr. Mckeon (Orthopedic Surgery) was consulted from the ED for further management. Patient admitted under this setting. Please see H&P for further details. Patient was admitted to the hospitalist service for further care. Patient was evaluated by Orthopedic Surgery and plans were for patient to proceed for left hip repair on 09/[address] Mckeon; no immediate complications in surgery with 30 ccs of estimated blood loss. Patient underwent PT/OT with significant progress during stay. She was agreeable for home health PT/OT. Plan was for her to continue with Lovenox 40 mg subcutaneously daily for DVT prophylaxis per Ortho recommendations. She was given oral narcotics for pain control per Orthopedic Surgery. She was to follow up in 4-6 weeks after discharge. She was also instructed to follow up with her PCP as well. Patient agreeable and comfortable with plan for discharge. Patient hemodynamically stable and in improved condition for discharge on 09/23 Status at Discharge Overall status at discharge: patient is progressing back to baseline Time Spent with Patient Time attestation: Total time spent providing and/or coordinating discharge services: Time spent: Greater than 30 minutes Exam Narrative: Exam Narrative: General: Patient sitting up in chair at time of visit in no acute distress. Therapy in room at time of visit HEENT: Normocephalic, EOMI, oral mucosa moist. Cardiovascular: Rate and rhythm are regular. No notable murmur, rub, or gallop. Respiratory: Lungs clear to auscultation anterolateral lung finch. Non-labored breathing. Abdomen: Soft, non-tender, non-distended, bowel sounds present. Extremities: Peripheral pulses intact. No edema. NTTP b/l calves. nvi b/l LE Neuro: No focal neurological deficits. Speech is clear. DS: Data Additional Comments Additional comments: Laboratory Tests 09/22/20 04:50 09/22/20 04:50 Last Vital Signs Temp 97.5 F L 09/23/20 08:00 Pulse 81 09/23/20 08:00 Resp 14 09/23/20 08:00 BP 116/60 09/23/20 08:00 Pulse Ox 97 09/23/20 08:00 ITS Impressions Hip/Pelvis X-Ray 09/20/20 18:57 Impression: 1: Nondisplaced impaction fracture left femoral neck. Chest X-Ray 09/20/20 19:58 IMPRESSION: 1: NO ACUTE CARDIOPULMONARY DISEASE. Intraoperative X-Ray 09/21/20 18:50 Impression: 1: Anatomic alignment of the left femoral neck fracture status post reduction with 3 lag screws. Discharge Plan Discharge Consulting providers: Abdoul Mckeon Anticipated Discharge Date/Time: 09/23/20 15:00 Patient Disposition: Home Health Service Activity: may shower, no driving and follow
[2020-09-23 12:00] VITALS: BP 116/62; PULSE 80; RESP 14; TEMP 36.4; O2SAT 98
== END 2020-09-23 14:22 | disposition home health service (06) | DRG 482 ==
LOC: ANHED 20:22 → ANH2MED 09-21 06:46
PROVIDERS: Orthopaedic Surgery; Admitting Provider Internal Medicine; Emergency Provider Nurse Practitioner; PCP Family Medicine; Visit Provider Physician Assistant
PROC: 0QS734Z Reposition Left Upper Femur with Internal Fixation Device, Percutaneous Approach (ICD-10-PCS; principal; 2020-09-21 17:00)
DX: S72.002A Fracture of unspecified part of neck of left femur, initial encounter for closed fracture (principal); W01.0XXA Fall on same level from slipping, tripping and stumbling without subsequent striking against object, initial encounter; Z28.21 Immunization not carried out because of patient refusal
CPT/HCPCS: 36415; 71045; 73502; 80048; 80053; 83735; 85025; 85027; 85730; 93005; 97110; 97116; 97161; 97165; 97530; 97535; 99285; A9270; C1713; C1769; J0131; J0690; J1100; J1652; J2270; J2370; J2405; J2704; J3010; J7030; J7120

== ENCOUNTER 2021-11-12 16:56 | Emergency (ER) | payer MEDICARE, SELFPAY ==
--- NOTE | 2021-11-12 16:58 | ED.URI ---
HPI - URI/Sore Throat General Chief Complaint: Upper Respiratory Infection Stated Complaint: cough w/mucus Time Seen by Provider: 11/12/21 16:58 Source: patient and RN notes reviewed History of Present Illness HPI Narrative: Patient is 67-year-old female who presents the urgent care with complaints of cough and nasal production. Patient states is been ongoing for about 2 weeks and seems to have worsened recently at night. Patient states that she has been taking Mucinex. Denies any fevers, shortness of breath, nausea or vomiting. Patient states she had COVID 2 months ago. No other acute complaints. No acute distress noted. Patient read the plan of care. Some parts of this dictation were generated by voice recognition software and may contain typographical and/or grammatical inaccuracies. Related Data Allergies Allergy/AdvReac Type Severity Reaction Status Date / Time No Known Allergies Allergy Verified 11/12/21 17:13 Review of Systems Review of Systems: CONSTITUTIONAL: Denies fever, chills, or sweats. EYES: Denies visual changes, redness, or discharge. ENT: Denies rhinorrhea, congestion, sore throat, or otalgia. CARDIOVASCULAR: Denies chest pain, palpitations, or edema. RESPIRATORY: Reports a productive cough without dyspnea GASTROINTESTINAL: Denies abdominal pain, nausea, vomiting, or diarrhea. GENITOURINARY: Denies dysuria or hematuria. SKIN: Denies rash or itching. MUSCULOSKELETAL: Denies back pain, joint pain, or myalgia. NEUROLOGIC: Denies headache, numbness, or weakness. All other systems reviewed are negative, except as documented in HPI. [facility] Past Medical History Medical History Migraines Surgical History Surgical History No history of previous surgery Family History Family History Mother Family history of malignant neoplasm of cervix, Onset Age: 43 Father Family history of malignant neoplasm of brain, Onset Age: 50 Patient's father is , Onset Age: 50 Son Myotonic dystrophy Diabetes mellitus Social History Social History Social History: The patient lives with her in [place]. They had 3 children, 2 daughters and a son. Their son not long ago from myotonic dystrophy. She helps care for her 26-year-old grandson and her 91-year-old sister who live nearby. 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 Lifelong nonsmoker. No alcohol or illicit substance use. She designates her , Joce, as her surrogate decision maker and she wishes to be a full code. Patient has not seen a PCP or BUSINESS DEVELOPMENT INTERN in over [address] Vasquez as her PCP; however, has never been seen by him per patient report. Smoking status: Never smoker Alcohol intake: never Substance use: never Substance use type: does not use Additional living arrangements comments: Lives with Gender identity (if verbalized by the patient): Female Sexual Orientation (if Verbalized by the Patient): Straight or Heterosexual Spiritual care concerns: Yes (Mormonism) Comments At the time of my signature, I reviewed and agree with the nursing past medical, surgical, social, and family history. There is no relevant family history pertinent to the patient complaint. Exam Narrative: GENERAL: This is a well-nourished, well-developed patient, in no apparent distress. HEAD: normocephalic, atraumatic. EYES: PERRL. Sclera clear/white. Vision is grossly intact. EARS: External ears normal, auditory canals clear and without drainage, TMs normal without perforation. Hearing grossly intact. NOSE: External nose normal with no obvious nasal discharge, nares without redness, no rhinorrhea. THROAT: Mucous me
[2021-11-12 17:02] VITALS: BP 115/58; PULSE 93; RESP 16; TEMP 38; O2SAT 98
== END 2021-11-12 17:25 | disposition home or self-care (01) ==
PROVIDERS: Emergency Provider Nurse Practitioner Family; PCP Family Medicine
DX: J40 Bronchitis, not specified as acute or chronic (principal); Z86.16 Personal history of COVID-19
CPT/HCPCS: 99213; G0463

== ENCOUNTER 2022-07-11 08:38 | Emergency (ER) | payer MEDICARE, SELFPAY ==
--- NOTE | 2022-07-11 08:42 | ED.URI ---
HPI - URI/Sore Throat General Chief Complaint: Upper Respiratory Infection Stated Complaint: cold flu Time Seen by Provider: 07/11/22 09:24 Source: patient and RN notes reviewed Mode of arrival: ambulatory Limitations: no limitations History of Present Illness HPI Narrative: 77-year-old female presents with concern for cough, nasal drainage. Reports symptoms are not improving. She reports her chest hurts from coughing she has nausea coughing. Reports she is not eating much food, she is drinking water and tea. She reports she tried Mucinex couple of times without relief. She denies current fevers. She reports exertional dyspnea MD elicited complaint: cough Related Data Allergies Allergy/AdvReac Type Severity Reaction Status Date / Time diphenhydramine AdvReac Other Verified 07/11/22 09:11 [From Tripp[facility]] Review of Systems Review of Systems: CONSTITUTIONAL: Reports malaise, fatigue. Denies chills, sweats, or fever. EYES: Denies visual changes, redness, or discharge. ENT: Reports rhinorrhea, congestion. Denies sinus pain, otalgia and sore throat. CARDIOVASCULAR: Denies chest pain, palpitations, or edema. RESPIRATORY: Reports persist cough, exertional dyspnea. GASTROINTESTINAL: Denies abdominal pain, vomiting, diarrhea. Reports nausea SKIN: Denies rash or itching. MUSCULOSKELETAL: Reports myalgia. NEUROLOGIC: Denies headache. All systems reviewed & are unremarkable except as noted in HPI and below PMFSH Past Medical History Medical History (Updated 07/11/22 @ 09:32 by Chelita Hinton NP) Closed displaced fracture of left femoral neck s/p PERC pinning 09/22/20. Femoral neck fracture Migraines Family History Family History Mother Family history of malignant neoplasm of cervix, Onset Age: 43 Father Family history of malignant neoplasm of brain, Onset Age: 50 Patient's father is , Onset Age: 50 Son Myotonic dystrophy Diabetes mellitus Social History Social History (Updated 01/27/22 @ 12:07 by May Jean PA-C) Social History: The patient lives with her in [place]. They had 3 children, 2 daughters and a son. Their son not long ago from myotonic dystrophy. She helps care for her 26-year-old grandson and her 91-year-old sister who live nearby. 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 Lifelong nonsmoker. No alcohol or illicit substance use. She designates her , Joce, as her surrogate decision maker and she wishes to be a full code. Patient has not seen a PCP or LINE UP WORKER in over [address] Vasquez as her PCP; however, has never been seen by him per patient report. Smoking status: Never smoker Alcohol intake: never Substance use: never Substance use type: does not use Additional living arrangements comments: Lives with Gender identity (if verbalized by the patient): Female Sexual Orientation (if Verbalized by the Patient): Straight or Heterosexual Spiritual care concerns: Yes (Holiness) Comments At time of signature, agree with nursing past medical, surgical, social and family history. There is no relevant family history pertinent to the presenting complaint Exam Narrative: GENERAL: Nontoxic and in no acute distress. HEAD: Normocephalic EYES: PERRLA, conjunctivae clear ENT: Nares clear. Mucous membranes moist. TM pearly tang with sharp light reflex bilaterally; no tragal tenderness. Oropharynx not erythematous without lesions. Tonsils not enlarged and without exudate, no drooling, no hoarseness, no trismus, uvula midline. NECK: Supple. No lymphadenopathy CHEST: Right lower lobe rhonchi noted, otherwise Clear to auscultation, breath sounds equal. No wheezing, rales, or stridor. No respiratory distress, speaks in full sentences. HEART: Regular rate and rhythm. No murmur heard. SKIN: Warm, dry
[2022-07-11 08:46] VITALS: BP 127/51; PULSE 92; RESP 16; TEMP 37; O2SAT 96
== END 2022-07-11 09:43 | disposition home or self-care (01) ==
PROVIDERS: Emergency Provider Nurse Practitioner; PCP Family Medicine
DX: J06.9 Acute upper respiratory infection, unspecified (principal); R09.89 Other specified symptoms and signs involving the circulatory and respiratory systems
CPT/HCPCS: 99213; G0463

== ENCOUNTER 2023-09-25 11:44 | Outpatient (CLI) | payer MEDICARE, SELFPAY ==
--- NOTE | 2023-09-25 12:23 | ECG_ITS ---
Measurements Intervals Bruno Rate: 67 P: 62 PA: 162 QRS: 38 QRSD: 92 T: 37 QT: 412 QTc: 436 Interpretive Statements SINUS RHYTHM BASELINE ARTIFACT- II, III, AVF NORMAL ECG COMPARED TO ECG 09/20/2020 20:36:51 NO SIGNIFICANT CHANGES Electronically Signed On 09-25-2023 12:50:02 CDT by Christian Zuniga D.O.
[2023-09-25 13:17] LABS: Albumin Level 4.1 g/dL (3.5-5.1); Anion Gap 5 mmol/L (8-16); Blood Urea Nitrogen 19 mg/dL (7-17); Calcium 9.2 mg/dL (8.4-10.2); Carbon Dioxide 26 mmol/L (22-30); Chloride 105 mmol/L (98-107); Estimated Glomerular Filt Rate > 60; Glucose 88 mg/dL (65-110); Potassium 4.2 mmol/L (3.4-5.0); Sodium 136 mmol/L (137-145)
[2023-09-25 13:19] LABS: Basophils Percent Auto 0.3 % (0.2-1.2); Eosinophils Absolute Auto 0.1 K/mm3 (0-0.3); Eosinophils Percent Auto 1.4 % (0-4.4); Hematocrit 37.6 % (37.0-47.0); Hemoglobin 12.3 g/dL (12.0-15.0); Immature Granulocyte Absolute 0.03 K/mm3 (0.00-0.031); Immature Granulocyte Percent A 0.3 % (0-0.5); Lymphocytes Absolute Auto 2.98 K/mm3 (0.9-3.2); Lymphocytes Percent Auto 34.7 % (18.3-44.2); Mean Corpuscular HGB Conc 32.7 g/dl (32-36); Mean Corpuscular Hemoglobin 31.8 pg (26-34); Mean Corpuscular Volume 97.2 fl (80-100); Mean Platelet Volume 10.9 fl (7.4-10.4); Monocytes Absolute Auto 0.7 K/mm3 (0.1-0.6); Monocytes Percent Auto 8.4 % (2.6-8.5); Neutrophils Absolute Auto 4.7 K/mm3 (1.3-6.7); Neutrophils Percent Auto 54.9 % (45.5-73.1); Platelet Count Result 272 k/mm3 (150-375); Red Blood Count 3.87 M/mm3 (4.2-5.4); Red Cell Distribution Width 13.1 % (11.5-14.5); White Blood Count 8.6 K/mm3 (4.5-10.0)
[2023-09-25 13:22] LABS: Hemoglobin A1C 5.9 % (<5.7)
[2023-09-25 13:24] LABS: Prothrombin Time 13.4 Seconds (11.1-14.7)
[2023-09-25 13:25] LABS: Partial Thromboplastin Time 27.7 SECONDS (22.3-36.8)
[2023-09-25 13:26] LABS: Appearance Urine Clear (Clear); Bacteria Urine None Seen /hpf; Bilirubin Urine Negative (Negative); Blood Urine Trace (Negative); Color Urine Yellow (Yellow); Glucose Urine UA Negative (Negative); Ketones Urine Negative (Negative); Leukocyte Esterase Ur 2+ LEU/UL (Negative); Nitrate Urine Negative (Negative); Non Pathogenic Casts 0-2; Protein Urine Negative (Negative); RBC Urine 0-2 /hpf (0-2); Specific Grav Ur 1.009 (1.001-1.035); Squamous Epithelial Cell Urine None seen /hpf (Few); Urobilinogen Urine 0.2 mg/dL (<2.0); WBC Urine 51-100 /hpf
[2023-09-25 13:30] LABS: Add Urine Microscopic? YES
[2023-09-25 13:38] LABS: Urine Cotinine NEGATIVE
[2023-09-25 14:18] LABS: MRSA (PCR) NOT DETECTED (NOT DETECTE)
== END 2023-09-25 11:45 | disposition home or self-care (01) ==
LOC: ANHSURGERY 11:47
PROVIDERS: PCP Family Medicine; Visit Provider Orthopaedic Surgery
DX: Z01.818 Encounter for other preprocedural examination (principal); M16.9 Osteoarthritis of hip, unspecified
CPT/HCPCS: 36415; 80048; 80307; 81001; 82040; 83036; 85025; 85610; 85730; 87077; 87086; 87088; 87186; 87641; 93005

== ENCOUNTER 2023-10-10 11:38 | Inpatient (IN) | payer MEDICARE, SELFPAY ==
[2023-09-25 11:53] VITALS: BP 116/60; PULSE 68; RESP 18; TEMP 36.9; O2SAT 100; BMI 23.0
--- NOTE | 2023-09-25 11:53 | PC.NURSE ---
PRE-OP INSTRUCTIONS, PLEASE READ CAREFULLY Report to the Outpatient Waiting Room, entrance under the green pavilion located off [facility], at time _0600_ on date _10/10/23_. Planned Procedure Time: _0730_. PACK A SMALL OVERNIGHT BAG AND LEAVE IN THE CAR ALONG WITH YOUR WALKER Time changes happen often and if your time is changed the preop area will call you the afternoon before. - You and your visitor will be asked to self-screen and do not enter if you have any COVID symptoms. - A mask is optional within the hospital at this time. -VISITING HOURS 8AM-8PM Patients may have clear liquids (water, carbonated beverages, clear teas, apple juice) until 3 hours prior to surgery (0430 AM) with a maximum of 20 ounces. - No food from midnight until time of surgery Take the following medications with a SIP of water the morning of surgery: _LEVOTHYROXINE_ DO NOT STOP ANY OF YOUR OTHER PRESCRIPTION MEDICATIONS PRIOR TO SURGERY ?EXCEPT THE FOLLOWING Medications to discontinue per physician ____NONE____, Date to take last dose Please no make-up, nail uzbek, hairspray, perfume, deodorant, or body powder the day of surgery. No jewelry (including any body piercings) or valuables the day of surgery, leave them at home. Please take a shower or bath the night before, or the morning of, surgery with an antibacterial soap. Wear comfortable, loose fitting clothing. - Jewelry must be removed prior to entering the operating room. Rings and piercings that are not removed may be cut off. - The hospital will not accept responsibility for valuables. - Please leave all valuables, including medications, at home the day of surgery. If you are going home after surgery, a licensed local hazmat driver must drive you home. - NO public transportation without another adult if you receive anesthesia. - We recommend that an adult stay with you for 24 hours following discharge. - We also recommend that you do not drive, make important decision, drink alcoholic beverages, or take any drugs that were not prescribed by your health care provider for at least 24 hours after your discharge time. Follow any additional instructions given to you from your surgeon. If you or anyone in your household have experienced Covid symptoms in the past week, please notify your surgeon or the nurse liaison at the phone number below for possible testing. Instructions given to _PATIENT_and asked if any additional questions and then verbalized understanding. Patient advised to call surgeon office or pre surgery nurse liaison [phone] if any additional questions.
[2023-10-10] VITALS (15 sets, daily range): BP systolic 99–147; BP diastolic 57–70; PULSE 57–81; RESP 12–20; TEMP 35.8–36.7; O2SAT 95–100; BMI 23.0
--- NOTE | ~2023-10-10 | XR_ITS ---
EXAMINATION: XR hip LT min 2V DATE: 10/10/2023 10:26 INDICATION: Left total hip arthroplasty TECHNIQUE: 2 views left hip FINDINGS: There is a left total hip arthroplasty in expected position. Subcutaneous gas with soft ti ssue swelling are consistent with recent surgery. IMPRESSION: 1. Recent left total hip arthroplasty. Reviewed, dictated and finalized at location B.
[2023-10-10] MEDS: LACTATED RINGERS 1,000 ML 30 ML IV CONT ×2 (06:40→09:55)
--- NOTE | 2023-10-10 06:45 | WPDANESEPPF ---
Anes - Initial Pre Proc Eval Procedure: Operation Date: 10/10/23 07:30 Proposed Procedures p Left Total Hip Arthroplasty - Abdoul Mckeon MD s Removal Hardware Left Hip - Abdoul Mckeon MD Date/Time: 10/10/23 06:45 Surgeon: Abdoul Mckeon MD Pre Op Diagnosis: left hip DJD, painful hardware Patient Data Age: 78 Gender: F Height: 1.52 m Weight: 53.5 kg Last Vital Signs Temp 36.9 C 09/25/23 11:53 Pulse 68 09/25/23 11:53 Resp 18 09/25/23 11:53 BP 116/60 09/25/23 11:53 Pulse Ox 100 09/25/23 11:53 O2 Del Method Room Air 09/25/23 11:53 Allergies Allergy/AdvReac Type Severity Reaction Status Date / Time codeine AdvReac Dizziness Verified 09/25/23 12:03 diphenhydramine AdvReac ITCHING/FEELS Verified 09/25/23 12:03 [From [facility]] LIKE BUG ARE CRAWING ALL OVER BODY Home Medications Medication Instructions Recorded Confirmed Type levothyroxine 50 mcg tablet 50 mcg PO DAILY #30 tabs 09/07/23 09/25/23 Rx chlorhexidine gluconate 4 % 1 applic topical ONCE #237 mL 09/28/23 Rx topical liquid (Hibiclens) Patient hx anesthesia problems: none Family hx anesthesia problems: none Results Review: All pre-operative results and documents have been reviewed as part of the pre-operative evaluation. [facility]LY [facility] Past Medical History Medical History Abnormal thyroid blood test Closed displaced fracture of left femoral neck s/p PERC pinning 09/22/20. Femoral neck fracture Migraines Surgical History Surgical History (Updated 10/10/23 @ 06:46 by Pablito Ko MD) History of hip surgery Family History Family History Mother Family history of malignant neoplasm of cervix, Onset Age: 43 Father Family history of malignant neoplasm of brain, Onset Age: 50 Patient's father is , Onset Age: 50 Son Myotonic dystrophy Diabetes mellitus Social History Social History Social History: The patient lives with her in [place]. They had 3 children, 2 daughters and a son. Their son not long ago from myotonic dystrophy. She helps care for her 26-year-old grandson and her 91-year-old sister who live nearby. 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 Lifelong nonsmoker. No alcohol or illicit substance use. She designates her , Joce, as her surrogate decision maker and she wishes to be a full code. Patient has not seen a PCP or [facility] in over 20 years[address] Vasquez as her PCP; however, has never been seen by him per patient report. Smoking status: Never smoker Second hand tobacco smoke exposure: No Alcohol intake: never Substance use: never Substance use type: does not use Do You Feel Safe in your Home?: Yes Lack of Transportation: No Lack of Food: Never True Current Housing: I Have Housing Concerned About Future Housing: No Difficulty Paying Gas/Electric Bills: No Difficulty Paying for Meds: No Currently Unemployed: No Education: High School Diploma/GED Difficulty w/ Childcare or Family Care: No Living arrangements: with family Additional living arrangements comments: Lives with Occupation/Education: unemployed Gender identity (if verbalized by the patient): Female Sexual Orientation (if Verbalized by the Patient): Straight or Heterosexual Spiritual care concerns: No Anes - Eval Final PreProcedure Day of Procedure 10/10/23 06:45 Patient weight: normal Heart: regular rate and rhythm Lungs: clear to auscultation Airway: Mallampati scale class II Neurological: alert and oriented Last oral intake: >/= 8 hours ASA classification: II Emergent: no Anesthetic plan: proceed Anesthesia type and monitoring: general ETT and standard
[2023-10-10] MEDS: ACETAMINOPHEN 500 MG TABLET 1000 MG PO (07:09)
[2023-10-10] MEDS: TRANEXAMIC ACID 1,000MG/ISO100 1,000 MG/100 ML BAG 200 MG IVPB (07:09)
--- NOTE | 2023-10-10 07:14 | WPDHPUPDATE1 ---
History and Physical Update Update Date/Time: 10/10/23 07:14 History and Physical has been reviewed, including an updated exam of the patient. There are NO changes in the patient's condition. Risks, benefits, and alternatives have been discussed and questions answered. Patient agrees to proceed with procedure.
[2023-10-10] MEDS: ceFAZolin 2 GM/D5W 50 ML 2 GM/50 ML BAG IVPB ×2 (07:34→15:33)
[2023-10-10] MEDS: SODIUM CHLORIDE 0.9% IV 37.7 ML, MORPHINE SULFATE INJ (*CRX) 2 MG, ROPivacaine HCL 1% 2... INFILTRATE (08:15)
[2023-10-10] MEDS: TRANEXAMIC ACID 1,000 MG/10 ML AMPUL 1000 MG IV PUSH (09:14)
--- NOTE | 2023-10-10 09:42 | W.PM.PROC2 ---
Procedure Note - Detailed Date of Procedure 10/10/23 Pre-op Diagnosis left hip DJD, painful hardware Post-op Diagnosis Same Procedure Performed HARDWARE REMOVAL, LEFT MYRTLE Surgeon Abdoul Mckeon MD Anesthesia General Description of Procedure THE PATIENT WAS TAKEN TO THE OPERATING ROOM IN STABLE CONDITION AND WAS PLACED IN THE LATERAL DECUBITUS AND THE LEFT LOWER EXTREMITY WAS PREPPED AND DRAPED IN THE STERILE FASHION. INCISION WAS MADE IN THE POSTERIOR LATERAL SIDE OF THE HIP, DOWN TO THE FASCIA LAYER. THE FASCIA WAS INCISED. THE HIP WAS EXPOSED. THE SCREWS WERE EXPOSED AND REMOVED WITHOUT ANY PROBLEMS. THE SHORT EXTERNAL ROTATORS WERE EXPOSED. THE SCIATIC NERVE WAS IDENTIFIED. INCISION WAS MADE THROUGH THE SORT EXTERNAL ROTATORS AND THE CAPSULE OF THE HIP JOINT. THE HIP WAS DISLOCATED. AN OSTEOTOMY WAS MADE TO THE FEMORAL NECK ABOUT 1 CM PROXIMAL TO THE LESSER TROCHANTER. THE ACETABULUM WAS EXPOSED. THERE WAS SEVERE DJD SEEN. BEGINNING WITH A 44 REAMER THE ACETABULUM WAS REAMED TO 49 MM. A 50 MM TRIAL WAS PLACED IN 35 DEG OF ABDUCTION AND ANTEVERSION WAS IN ALIGNMENT WITH THE TRANS ACETABULAR LIGAMENT. THE FIT WAS EXCELLENT. THE TRIAL WAS REMOVED. A 50 MM BIOMET G7 COMPONENT WAS THEN TAPPED IN TO PLACE IN 35 DEG OF ABDUCTION AND ANTEVERSION IN ALIGNMENT WITH THE TRANSVERSE ACETABULAR LIGAMENT. THE FIT WAS EXCELLENT. 2 SCREWS WERE PLACED FOR EXTRA STABILITY AND THEY HAD EXCELLENT BITES. THE ACETABULAR LINER WAS PLACED AND CHECKED FOR STABILITY. NEXT THE FEMUR WAS PREPARED WITH INITIAL CANAL FINDER THEN SEQUENTIAL BROACHING WITH A TAPERLOC HIP SYSTEM, UNTIL AN 11 BROACH FIT WELL IN 15 OF ANTEVERSION. A 0 HIGH OFFSET NECK WITH 32 MM HEAD TRIAL WAS PLACED. THE SHUCK TEST WAS EXCELLENT AND THE STABILITY IN FLEXION AND ROTATION WAS EXCELLENT. LEG LENGTHS WERE GROSSLY EQUAL. TRIALS WERE REMOVED. A BIOMET TAPERLOC 11 STEM WAS PLACED WITH A HIGH OFFSET NECK THE FIT WAS EXCELLENT IN 15 DEG OF ANTEVERSION. A 0 CERAMIC 32 MM FEMORAL HEAD WAS PLACED. THE HIP WAS TRIALED AND THE STABILITY WAS EXCELLENT WERE THE LEG LENGTHS AND THE SHUCK TEST. THE WOUND WAS IRRIGATED WITH STERILE BETADINE AND WATER FOR 3 MIN. THEN WASHED AGAIN. THE CAPSULE AND THE EXTERNAL ROTATORS WERE APPROXIMATED WITH NUMBER 2 VICRYL. THE FASCIA WITH No 2 QUIL AND THE SUB CUTANEOUS LAYER WITH 2-0 ABSORBABLE SUTURE WITH A RUNNING 3-0 SUBCUTICULAR LAYER WELL. DERMABOND WAS PLACED AND STERILE DRESSING WAS APPLIED. PATIENT WAS PLACED BACK ON TO THE SUPINE POSITION AND WAS EXTUBATED Estimated Blood Loss 200 Complications No immediate complications Condition Stable Disposition PACU
[2023-10-10] MEDS: fentaNYL CITRATE INJ (*CRX) 100 MCG/2 ML VIAL 25 MCG IV PUSH ×7 (10:14→11:32)
[2023-10-10] MEDS: KETOROLAC 15 MG/ML VIAL (*BKC) IV PUSH (10:49)
--- NOTE | 2023-10-10 11:50 | ADMGEN ---
This patient, Linda Romero, was admitted to 3 [facility] Surg Room 313-01. Patient/family oriented to hospital policies and general routines including ID bracelet, bed and alarms, visiting hours, pain management, procedures, bathroom and other care routines, personal items, smoking policy, room service/diet, and visiting hours. Information on how to activate the Rapid Response Team has been discussed. Patient/Family are encouraged to report perceived risks to care and to ask questions if they do not understand what they are told or what they should do.
[2023-10-10] MEDS: diazePAM (*CRX) 5 MG TABLET PO (12:12)
[2023-10-10] MEDS: HYDROcodone/acetaminophen (*CRX) 7.5-325 MG TABLET 2 TAB PO ×2 (12:13→18:16)
[2023-10-10] MEDS: ACETAMINOPHEN 325 MG TABLET 650 MG PO (15:34)
[2023-10-10] MEDS: SENNA/DOCUSATE SODIUM TABLET 2 TAB PO (15:37)
[2023-10-10] MEDS: FAMOTIDINE 20 MG TABLET PO (21:58)
[2023-10-10] MEDS: ASPIRIN 325 MG ENTERIC TABLET PO (22:02)
[2023-10-11 00:15] VITALS: BP 97/64; PULSE 79; RESP 18; TEMP 37.2; O2SAT 95
[2023-10-11] MEDS: HYDROcodone/acetaminophen (*CRX) 7.5-325 MG TABLET 2 TAB PO ×2 (00:25→06:35)
[2023-10-11] MEDS: ceFAZolin 2 GM/D5W 50 ML 2 GM/50 ML BAG IVPB ×2 (00:27→09:05)
[2023-10-11 04:35] VITALS: BP 114/55; PULSE 71; RESP 18; TEMP 36.8; O2SAT 97
[2023-10-11] MEDS: LEVOTHYROXINE SODIUM 50 MCG TABLET PO (06:33)
[2023-10-11 07:19] LABS: Basophils Percent Auto 0.2 % (0.2-1.2); Hematocrit 27.6 % (37.0-47.0); Hemoglobin 9.1 g/dL (12.0-15.0); Immature Granulocyte Absolute 0.03 K/mm3 (0.00-0.031); Immature Granulocyte Percent A 0.3 % (0-0.5); Lymphocytes Absolute Auto 2.22 K/mm3 (0.9-3.2); Lymphocytes Percent Auto 22.8 % (18.3-44.2); Mean Corpuscular Volume 97.2 fl (80-100); Mean Platelet Volume 11.9 fl (7.4-10.4); Monocytes Percent Auto 10.6 % (2.6-8.5); Neutrophils Absolute Auto 6.4 K/mm3 (1.3-6.7); Neutrophils Percent Auto 66.1 % (45.5-73.1); Platelet Count Result 175 k/mm3 (150-375); Red Blood Count 2.84 M/mm3 (4.2-5.4); Red Cell Distribution Width 13.2 % (11.5-14.5); White Blood Count 9.7 K/mm3 (4.5-10.0)
[2023-10-11 07:29] LABS: Anion Gap 3 mmol/L (4-12); Blood Urea Nitrogen 19 mg/dL (7-17); Calcium 8.4 mg/dL (8.4-10.2); Carbon Dioxide 25 mmol/L (22-30); Chloride 105 mmol/L (98-107); Estimated CRCL calculation 32 ml/min; Estimated Glomerular Filt Rate > 60; Glucose 133 mg/dL (65-110); Sodium 133 mmol/L (137-145)
--- NOTE | 2023-10-11 07:43 | P.PNAN_ITS ---
Anes - Prog Note Post-Op Date/Time: 10/11/23 07:43 Cardiovascular status: normal Respiratory status: normal Airway patency: baseline Mental status: baseline Post-Op hydration status: normal Vital Signs: Last Vital Signs Temp 36.8 C 10/11/23 04:35 Pulse 71 10/11/23 04:35 Resp 18 10/11/23 04:35 BP 114/55 L 10/11/23 04:35 Pulse Ox 97 10/11/23 04:35 O2 Del Method Room Air 10/10/23 13:57 O2 Flow Rate 2 10/10/23 11:30 Pain Score (VAS): 09/22 I/O: Intake & Output 10/10/23 10/10/23 10/11/23 15:59 23:59 07:59 Intake Total 790 390 300 Balance 790 390 300 Laboratory Tests 10/11/23 06:43 10/11/23 06:42 10/10/23 10/11/23 10/11/23 06:38 06:42 06:43 WBC 9.7 RBC 2.84 L Hgb 9.1 L D Hct 27.6 L MCV 97.2 MCH 32.0 MCHC 33.0 RDW 13.2 Plt Count 175 MPV 11.9 H Immature Gran % (Auto) 0.3 Neut % (Auto) 66.1 Lymph % (Auto) 22.8 Johnson % (Auto) 10.6 H Eos % (Auto) 0.0 Baso % (Auto) 0.2 Lymph # (Auto) 2.22 Johnson # (Auto) 1.0 H Eos # (Auto) 0.0 Baso # (Auto) 0.0 Abs Immat Gran (auto) 0.03 Absolute Neuts (auto) 6.4 Absolute Nucleated RBC 0.000 Nucleated RBC % 0.0 Sodium 133 L Potassium 4.0 Chloride 105 Carbon Dioxide 25 Anion Gap 3 L BUN 19 H Creatinine 0.90 Estim Creat Clear Calc 32 Estimated GFR > 60 Glucose 133 H Calcium 8.4 Antibody Screen Negative Post-procedural complaints: none Patient Feedback: Patient satisfied with anesthetic care.
--- NOTE | 2023-10-11 07:46 | WPDANESPN ---
Anes - Prog Note Post-Op Date/Time: 10/11/23 07:46 Cardiovascular status: normal Respiratory status: normal Airway patency: baseline Mental status: baseline Post-Op hydration status: normal Vital Signs: Last Vital Signs Temp 36.8 C 10/11/23 04:35 Pulse 71 10/11/23 04:35 Resp 18 10/11/23 04:35 BP 114/55 L 10/11/23 04:35 Pulse Ox 97 10/11/23 04:35 O2 Del Method Room Air 10/10/23 13:57 O2 Flow Rate 2 10/10/23 11:30 Pain Score (VAS): 12/23 I/O: Intake & Output 10/10/23 10/10/23 10/11/23 15:59 23:59 07:59 Intake Total 790 390 300 Balance 790 390 300 Laboratory Tests 10/11/23 06:43 10/11/23 06:42 10/10/23 10/11/23 10/11/23 06:38 06:42 06:43 WBC 9.7 RBC 2.84 L Hgb 9.1 L D Hct 27.6 L MCV 97.2 MCH 32.0 MCHC 33.0 RDW 13.2 Plt Count 175 MPV 11.9 H Immature Gran % (Auto) 0.3 Neut % (Auto) 66.1 Lymph % (Auto) 22.8 [place] % (Auto) 10.6 H Eos % (Auto) 0.0 Baso % (Auto) 0.2 Lymph # (Auto) 2.22 [place] # (Auto) 1.0 H Eos # (Auto) 0.0 Baso # (Auto) 0.0 Abs Immat Gran (auto) 0.03 Absolute Neuts (auto) 6.4 Absolute Nucleated RBC 0.000 Nucleated RBC % 0.0 Sodium 133 L Potassium 4.0 Chloride 105 Carbon Dioxide 25 Anion Gap 3 L BUN 19 H Creatinine 0.90 Estim Creat Clear Calc 32 Estimated GFR > 60 Glucose 133 H Calcium 8.4 Antibody Screen Negative Post-procedural complaints: none Patient Feedback: Patient satisfied with anesthetic care.
[2023-10-11 08:00] VITALS: BP 95/54; PULSE 78; RESP 18; TEMP 36.5; O2SAT 94
[2023-10-11 08:11] LABS: Glucose Point of Care 126 mg/dl (65-105)
[2023-10-11] MEDS: SENNA/DOCUSATE SODIUM TABLET 2 TAB PO ×2 (08:12→17:02)
[2023-10-11] MEDS: FAMOTIDINE 20 MG TABLET PO ×2 (08:12→20:22)
[2023-10-11] MEDS: ASPIRIN 325 MG ENTERIC TABLET PO ×2 (08:12→20:22)
[2023-10-11] MEDS: polyethylene glycoL 3350 17 GM POWD.PACK PO (08:13)
[2023-10-11 09:23] VITALS: BP 130/65; PULSE 68; RESP 18; TEMP 36.1; O2SAT 96
[2023-10-11 12:00] VITALS: BP 99/55; PULSE 6; RESP 18; TEMP 35.8; O2SAT 100
--- NOTE | 2023-10-11 16:36 | PM.PNORT ---
Progress Note: A&P Assessment and Plan (1) Degenerative joint disease (DJD) of hip: Qualifiers: Osteoarthritis type: post-traumatic Laterality: right Qualified Code(s): M16.51 - Unilateral post-traumatic osteoarthritis, right hip Code(s): M16.9 - Osteoarthritis of hip, unspecified Status: Acute Assessment and Plan: POD 1 SLOW PROGRESS. WE WILL CONTINUE PT TMRW AND REEVALUATE HER FOR DISCHARGE IN THE AFTERNOON Subjective Subjective Date/Time Seen: 10/11/23 16:36 Interval history: pod1 SLOW PRIGRESS WITH PAIN, PAIN NOT CONTROLLED TODAY Exam Extrem: Other: VSS AFEBRILE DRESSING DRY NV INTACT NEG HOMANS SIGN, CALF AND THIGH SOFT NON TENDER Objective Data Vital Signs Vital Signs: Vital Signs - 24 hr 10/10/23 20:08 10/11/23 00:15 10/11/23 04:35 Temperature 36.4 C L 37.2 C 36.8 C Pulse Rate 74 79 71 Respiratory Rate 20 18 18 Blood Pressure 107/58 L 97/64 L 114/55 L Pulse Oximetry 95 95 97 Oxygen Delivery 10/11/23 09:23 10/11/23 09:10 10/11/23 08:00 Temperature 36.1 C L 36.5 C Pulse Rate 68 78 Respiratory Rate 18 18 Blood Pressure 130/65 95/54 L Pulse Oximetry 96 94 Oxygen Delivery Room Air 10/11/23 12:00 Temperature 35.8 C L Pulse Rate 6 L Respiratory Rate 18 Blood Pressure 99/5 L Pulse Oximetry 100 Oxygen Delivery Intake/Output Intake/Output: Intake & Output 10/08/23 10/09/23 10/10/23 10/11/23 23:59 23:59 23:59 23:59 Intake Total 1280 950 Balance 1280 950 Meds/Results Medications: Active Medications Generic Name Dose Route Start Last Admin Trade Name Freq PRN Reason Stop Dose Admin Acetaminophen 650 mg 10/10/23 11:38 10/10/23 15:34 Acetaminophen 325 Mg Tablet PO 650 mg Q6H PRN Administration Mild Pain (1-3) or Fever Hydrocodone Bitart/Acetaminophen 1 tab 10/10/23 11:38 Hydrocodone/Acetaminophen (*Crx) 7.5-325 Mg Tablet PO Q3H PRN Pain Rated 4-6 Hydrocodone Bitart/Acetaminophen 2 tab 10/10/23 11:38 10/11/23 06:35 Hydrocodone/Acetaminophen (*Crx) 7.5-325 Mg Tablet PO 2 tab Q6H PRN Administration Pain Rated 7-10 Aspirin 325 mg 10/10/23 21:00 10/11/23 08:12 Aspirin 325 Mg Enteric Tablet PO 325 mg Q12HR KENJI Administration Diazepam 5 mg 10/10/23 11:38 10/10/23 12:12 Diazepam (*Crx) 5 Mg Tablet PO 5 mg Q6H PRN Administration Anxiety/Muscle Spasm Famotidine 20 mg 10/10/23 21:00 10/11/23 08:12 Famotidine 20 Mg Tablet PO 20 mg Q12HR KENJI Administration Levothyroxine Sodium 50 mcg 10/11/23 06:30 10/11/23 06:33 Levothyroxine Sodium 50 Mcg Tablet PO 50 mcg DAILY@0630 [facility] Administration Naloxone HCl 0.1 mg 10/10/23 11:38 Naloxone Hcl 0.4 Mg/Ml Vial IV PUSH Q2M PRN Opiate Reversal Ondansetron HCl 4 mg 10/10/23 11:38 Ondansetron Inj 4 Mg/2 Ml Vial IV PUSH Q4H PRN Nausea And Vomiting Polyethylene Glycol 17 gm 10/11/23 09:00 10/11/23 08:13 Polyethylene Glycol 3350 17 Gm Powd.Pack PO 17 gm QAM KENJI Administration Senna/Docusate Sodium 2 tab 10/10/23 17:00 10/11/23 08:12 Senna/Docusate Sodium Tablet PO 2 tab BID KENJI Administration Radiology Results: ITS Impressions Hip X-Ray 10/10/23 10:47 IMPRESSION: 1. Recent left total hip arthroplasty. Labs Labs: Laboratory Results - last 24 hr 10/11/23 10/11/23 10/11/23 06:42 06:43 07:41 WBC 9.7 RBC 2.84 L Hgb 9.1 L D Hct 27.6 L MCV 97.2 MCH 32.0 MCHC 33.0 RDW 13.2 Plt Count 175 MPV 11.9 H Immature Gran % (Auto) 0.3 Neut % (Auto) 66.1 Lymph % (Auto) 22.8 [place] % (Auto) 10.6 H Eos % (Auto) 0.0 Baso % (Auto) 0.2 Lymph # (Auto) 2.22 [place] # (Auto) 1.0 H Eos # (Auto) 0.0 Baso # (Auto) 0.0 Abs Immat Gran (auto) 0.03 Absolute Neuts (auto) 6.4 Absolute Nucleated RBC 0.000 Nucleated RBC % 0.0 Sodium 133 L Potassium 4.0 Chloride 10
[2023-10-11] MEDS: diazePAM (*CRX) 5 MG TABLET PO (20:22)
[2023-10-11 20:30] VITALS: BP 107/49; PULSE 72; RESP 20; TEMP 36.8; O2SAT 99
[2023-10-12 02:30] VITALS: BP 100/59; PULSE 95; RESP 20; TEMP 36.7; O2SAT 98
[2023-10-12] MEDS: LEVOTHYROXINE SODIUM 50 MCG TABLET PO (05:48)
[2023-10-12] MEDS: HYDROcodone/acetaminophen (*CRX) 7.5-325 MG TABLET 1 TAB PO (05:50)
[2023-10-12 06:00] VITALS: BP 110/51; PULSE 89; RESP 20; TEMP 37.2; O2SAT 99
[2023-10-12] MEDS: SENNA/DOCUSATE SODIUM TABLET 2 TAB PO (07:47)
[2023-10-12] MEDS: polyethylene glycoL 3350 17 GM POWD.PACK PO (07:48)
[2023-10-12] MEDS: ASPIRIN 325 MG ENTERIC TABLET PO (07:48)
[2023-10-12] MEDS: FAMOTIDINE 20 MG TABLET PO (07:48)
[2023-10-12] MEDS: ACETAMINOPHEN 325 MG TABLET 650 MG PO (07:51)
[2023-10-12 08:00] VITALS: BP 114/51; PULSE 79; RESP 16; TEMP 36.4; O2SAT 97
--- NOTE | 2023-10-12 10:06 | PM.PNORT ---
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 OK TO DC HOME WITH HOME HEALTH. F/U IN 3 WEEKS. Subjective Subjective Date/Time Seen: 10/12/23 10:06 Interval history: POD 2 DOING WELL. GOOD PROGRESS WITH PT. SHE WALKED DOWN THE [place] AND BACK WITH MILD PAIN. NO CALF PAIN Exam Extrem: Other: VSS AFEBRILE DRESSING DRY NV INTACT NEG HOMANS SIGN, CALF AND THIGH SOFT, NON TENDER. Objective Data Vital Signs Vital Signs: Vital Signs - 24 hr 10/11/23 12:00 10/11/23 20:30 10/11/23 20:00 Temperature 35.8 C L 36.8 C Pulse Rate 6 L 72 Respiratory Rate 18 20 Blood Pressure 99/55 L 107/49 L Pulse Oximetry 100 99 Oxygen Delivery Room Air 10/12/23 02:30 10/12/23 06:00 10/12/23 08:00 Temperature 36.7 C 37.2 C 36.4 C L Pulse Rate 95 89 79 Respiratory Rate 20 20 16 Blood Pressure 100/59 L 110/51 L 114/51 L Pulse Oximetry 98 99 97 Oxygen Delivery 10/12/23 08:00 Temperature Pulse Rate Respiratory Rate Blood Pressure Pulse Oximetry Oxygen Delivery Room Air Intake/Output Intake/Output: Intake & Output 10/09/23 10/10/23 10/11/23 10/12/23 23:59 23:59 23:59 23:59 Intake Total 1280 1740 640 Balance 1280 1740 640 Meds/Results Medications: Active Medications Generic Name Dose Route Start Last Admin Trade Name Freq PRN Reason Stop Dose Admin Acetaminophen 650 mg 10/10/23 11:38 10/12/23 07:51 Acetaminophen 325 Mg Tablet PO 650 mg Q6H PRN Administration Mild Pain (1-3) or Fever Hydrocodone Bitart/Acetaminophen 1 tab 10/10/23 11:38 10/12/23 05:50 Hydrocodone/Acetaminophen (*Crx) 7.5-325 Mg Tablet PO 1 tab Q3H PRN Administration Pain Rated 4-6 Hydrocodone Bitart/Acetaminophen 2 tab 10/10/23 11:38 10/11/23 06:35 Hydrocodone/Acetaminophen (*Crx) 7.5-325 Mg Tablet PO 2 tab Q6H PRN Administration Pain Rated 7-10 Aspirin 325 mg 10/10/23 21:00 10/12/23 07:48 Aspirin 325 Mg Enteric Tablet PO 325 mg Q12HR KENJI Administration Diazepam 5 mg 10/10/23 11:38 10/11/23 20:22 Diazepam (*Crx) 5 Mg Tablet PO 5 mg Q6H PRN Administration Anxiety/Muscle Spasm Famotidine 20 mg 10/10/23 21:00 10/12/23 07:48 Famotidine 20 Mg Tablet PO 20 mg Q12HR KENJI Administration Levothyroxine Sodium 50 mcg 10/11/23 06:30 10/12/23 05:48 Levothyroxine Sodium 50 Mcg Tablet PO 50 mcg DAILY@0630 KENJI Administration Naloxone HCl 0.1 mg 10/10/23 11:38 Naloxone Hcl 0.4 Mg/Ml Vial IV PUSH Q2M PRN Opiate Reversal Ondansetron HCl 4 mg 10/10/23 11:38 Ondansetron Inj 4 Mg/2 Ml Vial IV PUSH Q4H PRN Nausea And Vomiting Polyethylene Glycol 17 gm 10/11/23 09:00 10/12/23 07:48 Polyethylene Glycol 3350 17 Gm Powd.Pack PO 17 gm QAM KENJI Administration Senna/Docusate Sodium 2 tab 10/10/23 17:00 10/12/23 07:47 Senna/Docusate Sodium Tablet PO 2 tab BID KENJI Administration Radiology Results: ITS Impressions Hip X-Ray 10/10/23 10:47 IMPRESSION: 1. Recent left total hip arthroplasty.
--- NOTE | 2023-10-12 10:09 | PM.DS ---
DS: Admitting Diagnosis Discharge Date 10/12/23 Admitting Diagnosis LEFT HIP DJD DS: Discharge Diagnosis Discharge Diagnosis (1) Degenerative joint disease (DJD) of hip: Qualifiers: Laterality: right Osteoarthritis type: post-traumatic Qualified Code(s): M16.51 - Unilateral post-traumatic osteoarthritis, right hip Code(s): M16.9 - Osteoarthritis of hip, unspecified Status: Acute DS: Summary Hospital Course Reason for hospitalization: LEFT MYRTLE Hospital Course: PATIENT WAS ADMITTED S/P TOTAL HIP ARTHROPLASTY FOR POSTOPERATIVE MEDICAL MANAGEMENT, PAIN CONTROL AND MOBILIZATION WITH PHYSICAL AND OCCUPATIONAL THERAPY. THE PATIENT PROGRESSED WELL WITH PT/OT. LABS AND VITALS REMAINED STABLE AND PAIN WELL CONTROLLED. THE PATIENT HAS BEEN CLEARED TO BE DISCHARGED HOME. FOLLOW UP APPOINTMENT SCHEDULED. DISCHARGE INSTRUCTIONS DISCUSSED AT LENGTH WITH THE PATIENT. MEDICATIONS REVIEWED. Status at Discharge Cognitive/behavioral status at discharge: STABLE Time Spent with Patient Time attestation: Total time spent providing and/or coordinating discharge services: Discharge Plan Discharge Attending physician on discharge: Abdoul Mckeon Discharging Clinician: Abdoul Mckeon Anticipated Discharge Date/Time: 10/12/23 10:10 Patient Disposition: Home Health Service Activity: may shower, no driving and follow weight bearing status Diet: as tolerated Wound Care Instructions: follow printed instructions Discharge Instructions: Per Care Coordination, patient to discharge with [facility] ([phone]) for PT/OT and senior care services. Agency will call to arrange initial visit. ABDOUL MCKEON M.D. [facility] [address] [facility] [address] [place] [id number] POST OPERATIVE DISCHARGE INSTRUCTIONS FOLLOWING TOTAL HIP REPLACEMENT SURGERY ? Your dressing will be changed prior to your discharge. You will be sent home with one additional dressing to be changed on post op day 7 by the home health RN. You may remove the dressing on post op day 14. Your incision was closed with dermabond, allow the dermabond to fall off naturally once your dressing is removed. Do not pull at the dermabond or disrupt incision healing. ? You may shower with your dressing but do not submerge in a bath tub. ? Do not drive or operate machinery until you are released by Dr. Mckeon. ? Do not walk without a walker for any reason until you are released by Dr. Mckeon. ? Continue to apply ice to the hip intermittently for additional pain relief. Protect your skin with a towel or pillow case. ? Unless otherwise instructed by Dr. Mckeon you me be weight bearing as tolerated with your walker. ? Continue to follow strict total hip replacement precautions. ? Your first post op appointment was sent to you via mail preoperatively. If you have any questions or are unable to make your appointment, please contact our office for scheduling questions. ? Your medications have been sent to your pharmacy. You have been sent home with pain medication. We have also sent you with a stool softener as narcotics can cause constipation. Please keep this in mind during your postoperative recovery. If you are not experiencing regular bowel movements, please contact our office for further instruction. ? Please contact our office with any questions regarding your hip at [phone]. TAKE 2 REGULAR STRENGTH ADULT ASPIRINS (325 MG) PER DAY FOR 3 WEEKS TO PREVENT BLOOD CLOTS Patient Instructions: Antibiotic Form Stand Alone Forms: General Discharge Information Follow-up/Referrals: Abdoul Mckeon MD [Physician] - 3 Weeks Discharge Medications: New hydrocodone-acetaminophen 7.5-325 mg tablet 1 tablet PO Q6H PRN (Reason: pain) Qty: 30 0RF Continued levothyroxine 50 mcg tablet 50 mcg PO DAILY Qty: 30 1RF Date of admission: 10/10/23 11:38 [place]
== END 2023-10-12 11:10 | disposition home health service (06) | DRG 470 ==
LOC: ANH3MEDSUR 11:42
PROVIDERS: Admitting Provider Orthopaedic Surgery; PCP Family Medicine; Visit Provider Orthopaedic Surgery
PROC: 0SRB03A Replacement of Left Hip Joint with Ceramic Synthetic Substitute, Uncemented, Open Approach (ICD-10-PCS; CPT 27130; principal; 2023-10-10 07:30)
PROC: 0SRB03A Replacement of Left Hip Joint with Ceramic Synthetic Substitute, Uncemented, Open Approach (ICD-10-PCS; 2023-10-10 07:30)
DX: T84.84XA Pain due to internal orthopedic prosthetic devices, implants and grafts, initial encounter (principal); M16.52 Unilateral post-traumatic osteoarthritis, left hip
CPT/HCPCS: 36415; 73502; 80048; 82948; 85025; 86850; 86900; 86901; 97110; 97116; 97161; 97165; 97530; 97535; A9270; C1713; C1776; J0171; J0690; J1100; J1170; J1885; J2250; J2270; J2405; J2704; J2795; J3010; J7120

== ENCOUNTER 2024-06-06 14:56 | Outpatient (CLI) | payer MEDICARE, SELFPAY ==
--- NOTE | ~2024-06-06 | XR_ITS ---
CHEST RADIOGRAPH, PA AND LATERAL CLINICAL HISTORY: R07.1 - Chest pain on breathing . COMPARISON: 09/20/2020 TECHNIQUE: PA and lateral views of the chest. FINDINGS The cardiomediastinal silhouette is unremarkable. Redemonstration of multiple calcified granulomas. The remainder of the lungs are clear. Visualized osseous structures and soft tissues are unremarkable. IMPRESSION: No focal infiltrate or effusion. Reviewed, dictated and finalized at location A. HIDE INSPECTOR
== END 2024-06-06 14:57 | disposition home or self-care (01) ==
PROVIDERS: PCP Family Medicine; Visit Provider Student in an Organized Health Care Education/Training Program
DX: R07.1 Chest pain on breathing (principal)
CPT/HCPCS: 71046

== ENCOUNTER 2025-05-13 11:04 | Outpatient (CLI) | payer MEDICARE, SELFPAY ==
--- OUTSIDE RECORDS SUMMARY | 2025-05-13 12:41 | XMS_ITS | Encounter Summary ---
Author Organization [facility] Address [address] [place] [address] Phone Care Team Providers Care Gear Roller Name Role Phone Margaux Vasquez MD Primary Care Provider [phone] Encounter Details Date Type Department Care Team (Late st Contact Info) Description 04/04/2022 [facility] [address] [place] [address] Bakari Coburn MD [address] [place] [address] Pre-op testing (Primary Dx) Social History Tobacco Use Types Packs/Day Years Used Date Smoking Tobacco: Never Smokeless Tobacco: Never Alcohol Use Standard Drinks/Week Comments Never 0 (1 standard drink = 0.6 oz pur e alcohol) Sexually Active Control Partners Comments Never Comments Unknown Sex and Gender Information Value Date Recorded Sex Assigned at Not on file Legal Sex Female 7:51 AM CDT Gender Identity Not on file Sexual Orientation Not on file COVID-19 Exposure Response Date Recorded In the last 10 days, have yo u been in contact with someone who was confirmed or suspected to have Coronavirus/COVID-19? No / Unsure 04/07/2022 9:56 AM CDT documented as of this encounter Plan of Treatment Not on file documented as of this encounter Results * SARS-COV-2 BY MOLECULAR (04/07/2022 10:03 AM CDT) SARSCOV2 NOT DETECTED (Referenc e Range for this test is Not Detected) [facility] CHIU ID NOW B 04/07/2022 11:04 AM CDT [facility] Comment:This test was perfor med by a MOLECULAR, NON-PCR method Other NASOPHARYNGEAL STRUCTURE / Unknown Non-Phlebotomy Collection / Unknown 04/07/2022 10:03 AM CDT 04/07/2022 10:41 AM CDT Narrative [facility] - 04/07/2022 11:04 AM CDT This test has been authorized by the FDA under an Emergency Use Authorization (EUA) only. Negative results should be treated as presumptive and, if inconsistent with clinical signs and symptoms or necessary for patient management, the patient should be tested with an alternative molecular assay. Negative results do not preclude SARS-CoV-2 infection or any other respiratory pathogen. Additional information for Clinicians can be found at: https://www.fda.gov/media/645670/download Additional information for Patients can be found at: https://www.fda.gov/media/993117/download Bakari Coburn MD MICROBIOLOGY - GENERAL ORDERABLES Final Result [facility] [address] [place] [address] documented in this encounter Visit Diagnoses Diagnosis Pre-op testing- Primary Preoperative examination, unspecified documented in this encounter Care Teams Gear Roller Relationship Specialty Start Date End Date Margaux Vasquez MD PCP - General Family Medicine 04/05/22 documented as of this encounter
--- OUTSIDE RECORDS SUMMARY | 2025-05-13 12:41 | XMS_ITS | Clinical Summary ---
Author Organization [facility] Address [address] [place] [address] Phone Care Team Providers Care Jewelry Designer Name Role Phone Margaux Vasquez MD Primary Care Provider [phone] Allergies Active Allergy Reactions Criticality Noted Date Comments Diphenhydramine Other (see Comments) 04/04/2022 FEELS LIKE BUGS ARE UNDER MY SKIN Codeine Other (see Comments) 04/04/2022 EXTREME LETHARGY Medications fluticasone (FLONASE) 50 MCG/ACT Suspension 1-2 Sprays by Nasal route daily. Use in each nostril as directed. Active albuterol 108 (90 Base) MCG/ACT Aerosol Solution take 2 Puffs by inhalation every 4 hours as needed. Active Active Problems No known active problems Family History Medical History Relation Name Comments Cancer Father BRAIN, STOMACH Cancer Mother SPINAL AT 43 Relation Name Status Comments Father Mother Social History Tobacco Use Types Packs/Day Years [...] on file Sexual Orientation Not on file Last Filed Vital Signs Vital Sign Reading Time Taken Comments Blood Pressure 129/71 05/08/2022 8:13 AM CDT Pulse 59 05/08/2022 8:13 AM CDT Temperature 36.3 C (97.3 F) 05/08/2022 8:13 AM CDT Respiratory Rate 16 05/08/2022 8:13 AM CDT Oxygen Saturation 100% 05/08/2022 8:13 AM CDT Inhaled Oxygen Concentration - - Weight 49.9 kg (110 lb) 05/02/2022 11:00 AM CDT Height 152.4 cm (5') 05/02/2022 11:00 AM CDT Body Mass Index 21.48 05/02/2022 11:00 AM CDT Plan of Treatment Health Maintenance Due Date Last Done Comments Hepatitis C Virus (HCV) Screening 1945 TdaP Immunization 1945 Pneumococcal Immunization (5 0+ years) (1 of 1 - PCV) 1995 Zoster Immunization (1 of 2) 1995 Medicare Initial AWV [id number] 07/16/2019 Respiratory Syncytial Virus (RSV) Immunization (Adult) (1 - 1-dose 75+ series) 2020 Influenza Immunization (#1) 2025 SARS-COV-2 Immunization ( - season) 2025 Hepatitis B Immunization Aged Out No longer eligible based on patient's age to complete this topic Human Papillomavirus (HPV) Immunization Aged Out No longer eligible b ased on patient's age to complete this topic Meningococcal Immunization (ACWY) Aged Out No longer eligible based on patient's age to complete this topic Rotavirus Immunization Aged Out No lo nger eligible based on patient's age to complete this topic Medical Devices Implanted Type Area [id number] Application Developer Device Identifier Shelf Expiration Date Model / Serial / Lot Ashok Arroyo Iol Implanted:Qty: 1 on 04/10/2022 by Bakari Coburn MD at [facility] Left: Eye 10/19/2023 [id number] / [id number] / [id number] Right Intraocular Lens Implanted:Qty: 1 on 05/08/2022 by Bakari Coburn MD at [facility] Right: Eye [facility] 03/13/2024 [id number] / [id number] / [id number] Insurance MEDICARE C [employer] Care Teams Jewelry Designer Relationship Specialty Start Date End Date Margaux Vasquez MD PCP - General Family Medicine 04/05/22
--- OUTSIDE RECORDS SUMMARY | 2025-05-13 12:41 | XMS_ITS | Encounter Summary ---
Author Organization [facility] Address [address] [place] [address] Phone Care Team Providers Care Toolmaker Grade Three Name Role Phone Margaux Vasquez MD Primary Care Provider [phone] Encounter Details Date Type Department Care Team (Late st Contact Info) Description 05/03/2022 [facility] [address] [place] [address] Bakari Coburn MD [address] [place] [address] Preop testing (Primary Dx) Social History Tobacco Use [...] suspected to have Coronavirus/COVID-19? No / Unsure 05/05/2022 9:54 AM CDT documented as of this encounter Plan of Treatment Not on file documented as of this encounter Results * SARS-COV-2 BY MOLECULAR (05/05/2022 10:08 AM CDT) SARSCOV2 NOT DETECTED (Referenc e Range for this test is Not Detected) [facility] CHIU ID NOW B 05/05/2022 10:33 AM CDT [facility] Comment:This test was perfor med by a MOLECULAR, NON-PCR method Other NASOPHARYNGEAL STRUCTURE / Unknown Non-Phlebotomy Collection / Unknown 05/05/2022 10:08 AM CDT 05/05/2022 10:17 AM CDT Narrative [facility] - 05/05/2022 10:33 AM CDT This test has been authorized [...] information for Clinicians can be found at: https://www.fda.gov/media/055947/download Additional information for Patients can be found at: https://www.fda.gov/media/036639/download Bakari Coburn MD MICROBIOLOGY - GENERAL ORDERABLES Final Result [facility] [address] [place] [address] documented in this encounter Visit Diagnoses Diagnosis Preop testing- Primary Preoperative examination, unspecified documented in this encounter Care Teams Toolmaker Grade Three Relationship Specialty Start Date End Date Margaux Vasquez MD PCP - General Family Medicine 04/05/22 documented as of this encounter
[2025-05-13 13:18] LABS: Hematocrit 38.2 % (37.0-47.0); Hemoglobin 12.4 g/dL (12.0-15.0); Immature Granulocyte Percent A 0.3 % (0-0.5); Lymphocytes Absolute Auto 2.54 K/mm3 (0.9-3.2); Mean Corpuscular HGB Conc 32.5 g/dl (32-36); Mean Corpuscular Hemoglobin 31.6 pg (26-34); Mean Corpuscular Volume 97.2 fl (80-100); Nucleated Red Blood Cells Absolute Auto 0.000 K/mm3 (0.0-0.012); Nucleated Red Blood Cells Perc 0.0 % (0.0-0.2); Platelet Count Result 247 k/mm3 (150-375); Red Blood Count 3.93 M/mm3 (4.2-5.4); White Blood Count 7.0 K/mm3 (4.5-10.0)
[2025-05-13 13:20] LABS: Alanine Aminotransferase 31 U/L (6-35); Albumin Level 4.2 g/dL (3.5-5.1); Alkaline Phosphatase 103 U/L (38-126); Anion Gap 8 mmol/L (4-12); Aspartate Amino Transferase 52 U/L (14-36); Bilirubin,Total 0.5 mg/dL (0.2-1.3); Blood Urea Nitrogen 31 mg/dL (7-17); Calcium 9.2 mg/dL (8.4-10.2); Carbon Dioxide 26 mmol/L (22-30); Chloride 104 mmol/L (98-107); Cholesterol 228 mg/dL (0-200); Estimated Glomerular Filt Rate > 60; Glucose 94 mg/dL (65-110); HDL Direct 76 mg/dL; Potassium 4.1 mmol/L (3.4-5.0); Sodium 138 mmol/L (137-145); Total Protein 7.3 g/dL (6.3-8.2); Triglycerides 56 mg/dL (<150)
[2025-05-13 13:50] LABS: Hemoglobin A1C 5.7 % (<5.7)
[2025-05-13 14:03] LABS: Thyroid Stimulating Hormone 0.351 uIU/mL (0.465-4.680)
== END 2025-05-13 11:05 | disposition home or self-care (01) ==
LOC: ANHGOSHLAB 11:05
PROVIDERS: PCP Family Medicine; Visit Provider Nurse Practitioner Family
DX: E03.9 Hypothyroidism, unspecified (principal); E78.2 Mixed hyperlipidemia; R73.01 Impaired fasting glucose
CPT/HCPCS: 36415; 80053; 80061; 83036; 84443; 85025

== ENCOUNTER 2025-06-01 11:43 | Outpatient (CLI) | payer MEDICARE, SELFPAY ==
[2025-06-01 13:41] LABS: Thyroid Stimulating Hormone Reflex 0.501 uIU/mL (0.465-4.68)
== END 2025-06-01 11:44 | disposition home or self-care (01) ==
LOC: ANHGOSHLAB 11:44
PROVIDERS: PCP Family Medicine; Visit Provider Nurse Practitioner Family
DX: E03.9 Hypothyroidism, unspecified (principal)
CPT/HCPCS: 36415; 84443